=== PATIENT | female | born 1935 | race Caucasian/White ===

== ENCOUNTER → 2016-09-22 | Outpatient (CLI) | payer MEDICARE ==
--- NOTE | 2016-10-01 14:55 | WOMENS IMAGING REPORT ---
EXAM DESCRIPTION: BILAT SCREENING MAMMO W/CAD COMPLETED DATE/TIME: 09/22/2016 1:28 pm REASON FOR STUDY: ROUTINE SCREENING; Z12.31 Z12.31 ENCNTR SCREEN MAMMOGRAM FOR MALIGNANT NEOPLASM O F GEOFF COMPARISON: 08/13/2015 TECHNIQUE: Standard craniocaudal and mediolateral oblique views of each breast recorded using [employer] acquisition. LIMITATIONS: None. FINDINGS: No masses, calcifications or architectural distortion. No areas of suspicion. Read with the assistance of CAD. .[facility] - R2 Cenova Version 1.3 .[facility] - R2 Cenova Version 1.3 .[facility] - R2 Cenova Version 2.4 .[facility] - R2 Cenova Version 2.4 .[facility] - R2 Envelope Stuffer Version 9.2 IMPRESSION: NORMAL MAMMOGRAM. BIRADS 1. BREAST DENSITY: b. There are scattered areas of fibroglandular density. BIRAD: 1 NEGATIVE RECOMMENDATION: ROUTINE SCREENING COMMENT: The patient has been notified of the results by letter per SA requirements. Additional no tification policies are in place for contacting patient with suspicious or incomplete findings. Quality ID #[id number]: The [employer] recommends an annual screening mammogram for women aged 40 years or over. This facility utilizes a reminder system to ensure that all patients receive reminder letters, and/or direct phone calls for appointments. This includes reminders for routine scr eening mammograms, diagnostic mammograms, or other Breast Imaging Interventions when appropriate. Th is patient will be placed in the appropriate reminder system. The [employer] (ACR) has developed recommendations for screening MRI of the breast s in certain patient populations, to be used in conjunction with mammography. Breast MRI surveillanc e may be appropriate for women with more than 20% lifetime risk of developing breast cancer as deter mined by genetic testing, significant family history of the disease, or history of mantle radiation f or Hodgkins Disease. ACR Practice Guidelines 2008. TECHNICAL DOCUMENTATION: FINDING NUMBER: (1) ASSESSMENT: (1) JOB ID: [id number] [employer]- All Rights Reserved
== END ==
LOC: EDBD → MERGE 14:24 → WI 14:24
PROVIDERS: ATTEND Physician Assistant
DX: Z12.31 Encounter for screening mammogram for malignant neoplasm of breast (principal)
CPT/HCPCS: 77067; G0202

== ENCOUNTER 2016-09-27 17:20 | Emergency (ER) | payer MEDICARE ==
[2016-09-27 17:28] VITALS: BP 199/86
--- NOTE | 2016-09-27 18:24 | ER Document Report ---
ED Medical Screen (RME) - General Chief Complaint: Mouth Injury Stated Complaint: TONGUE SWELLING Time Seen by Provider: 09/27/16 18:20 Mode of Arrival: Ambulatory Information source: Patient Notes: This is a 80-year-old female that presents to the emergency room with swollen tongue after biting Hard on on her tongue earlier today. He has a history of hypertension. She is not on any blood thinners other than a baby aspirin a day. Denies any shortness of breath. TRAVEL OUTSIDE OF THE [place] IN LAST 30 DAYS: No - HPI Onset: Just prior to arrival Onset/Duration: Sudden Quality of pain: Dull Severity: Moderate Pain Level: 2 Associated Symptoms: denies: Chest pain, Fever, Shortness of breath, Sinus pain/ drainage Exacerbated by: Denies Relieved by: Denies Similar symptoms previously: No Recently seen / treated by doctor: No - Related Data Smoking: Non-smoker Frequency of alcohol use: None Drug Abuse: None Allergies/Adverse Reactions: prednisone [Prednisone] Allergy (Mild, Verified 12/13/12 11:03) rash hydromorphone HCl [From Dilaudid] Adverse Reaction (Severe, Verified 12/13/12 11 :03) "crazy" codeine [Codeine] Adverse Reaction (Intermediate, Verified 12/13/12 11:03) nausea vomit oxcarbazepine [From Trileptal] Adverse Reaction (Mild, Verified 12/13/12 11:03) HypoNa+ Past Medical History - General Information source: Patient - Social History Cigarette use (# per day): No Chew tobacco use (# tins/day): No Frequency of alcohol use: None Drug Abuse: None Lives with: Spouse/Significant other Family history: None - Past Medical History Cardiac Medical History: Reports: Hx Hypercholesterolemia, Hx Hypertension Pulmonary Medical History: Denies: Hx Tuberculosis Endocrine Medical History: Reports: Hx Hypothyroidism. Denies: Hx Diabetes Mellitus Type 1, Hx Diabetes Mellitus Type 2 Renal/ Medical History: Denies: Hx Peritoneal Dialysis GI Medical History: Reports: Hx Diverticulitis Psychiatric Medical History: Denies: Hx Depression Past Surgical History: Reports: Hx Breast Surgery - left breast biopsy, Hx Hysterectomy, Hx Orthopedic Surgery - back surgery - Immunizations Hx Diphtheria, Pertussis, Tetanus Vaccination: No Review of Systems - Review of Systems Constitutional: No symptoms reported EENT: See HPI Cardiovascular: No symptoms reported Respiratory: No symptoms reported Gastrointestinal: No symptoms reported Genitourinary: No symptoms reported Female Genitourinary: No symptoms reported Musculoskeletal: No symptoms reported Skin: No symptoms reported Hematologic/Lymphatic: No symptoms reported Neurological/Psychological: No symptoms reported Physical Exam - Vital signs Vitals: Temp Pulse Resp BP Pulse Ox 97.8 F 76 15 199/86 H 97 09/27/16 17:28 09/27/16 17:28 09/27/16 17:28 09/27/16 17:28 09/27/16 17:28 Notes: Physical exam: GENERAL: 80-year-old female, alert and oriented 3, no acute distress HEAD: Atraumatic, normocephalic. EYES: Pupils equal round and reactive to light, extraocular movements intact, sclera anicteric, conjunctiva are normal. ENT: Does have a contusion to the left mid tongue with some asymmetric swelling. There is no airway compromise. There is no stridor. The the mouth shows no swelling. NECK: Normal range of motion, supple without lymphadenopathy LUNGS: Breath sounds clear to auscultation bilaterally and equal. No wheezes rales or rhonchi. PSYCH: Normal mood, normal affect. SKIN: Warm, Dry, normal turgor, no rashes or lesions noted. Course - Vital Signs Vital signs: Temp Pulse Resp BP Pulse Ox 97.8 F 76 15 199/86 H 97 09/27/16 17:28 09/27/16 17:28 09/27/16 17:28 09/27/16 17:28 09/27/16 17:28 Doctor's Discharge - Discharge Clinical Impression: Tongue bite Condition: Stable Disposition: HOME, SELF-CARE Additional Instructions: Recommendations: Can use ice to the tongue for several minutes at a time over the next day. Benadryl will not necessarily help (but it will not make it worse either). Try to avoid any further bites to the area. Do not take your baby aspirin for the next several days ( can restart on ). Return to the emergency room for worsening swelling, difficulty breathing or any concerns or getting worse.
== END 2016-09-27 18:25 | disposition home or self-care (01) ==
LOC: ER 17:20
DX: S01.552A Open bite of oral cavity, initial encounter (principal); R22.0 Localized swelling, mass and lump, head; I10 Essential (primary) hypertension; W50.3XXA Accidental bite by another person, initial encounter
CPT/HCPCS: 99282

== ENCOUNTER → 2017-11-02 | Outpatient (CLI) | payer MEDICARE ==
--- NOTE | 2017-11-03 15:55 | WOMENS IMAGING REPORT ---
EXAM DESCRIPTION: 3D SCREENING MAMMO BILAT COMPLETED DATE/TIME: 11/02/2017 1:55 pm REASON FOR STUDY: BILATERAL SCREENING MAMMO 3D/Z12.31 Z12.31 ENCNTR SCREEN MAMMOGRAM FOR MALIGNANT NEOPLASM OF GEOFF COMPARISON: 2015, 2016 TECHNIQUE: Standard craniocaudal and mediolateral oblique views of each breast recorded using digita l acquisition and breast tomosynthesis. LIMITATIONS: None. FINDINGS: Findings present which are benign by mammographic criteria. No suspicious masses, calcifi cations or architectural distortion. Pertinent benign findings: Benign bilateral breast parenchymal calcifications Read with the assistance of CAD. .[facility] - R2 Cenova Version 1.3 .[facility] Imaging - R2 Cenova Version 1.3 .[facility] - R2 Cenova Version 2.4 .[facility] [place] Cenova Version 2.4 .[facility] - R2 Cloth Piecer Version 9.2 Benign mammographic findings may include one or more of the following: Smooth masses, popcorn/rim/co arse calcifications, asymmetries, post-procedure changes, and lesions with long-standing stability. IMPRESSION: BENIGN MAMMOGRAPHIC FINDINGS. BIRADS 2 BREAST DENSITY: c. The breasts are heterogeneously dense, which may obscure small masses. BIRAD: 2 BENIGN FINDING(S) RECOMMENDATION: RECOMMENDATION: ROUTINE SCREENING Please continue yearly bilateral screening tomosynthesis in November 2017 COMMENT: The patient has been notified of the results by letter per SA requirements. Additional no tification policies are in place for contacting patient with suspicious or incomplete findings. Quality ID #[id number]: The [employer] recommends an annual screening mammogram for women aged 40 years or over. This facility utilizes a reminder system to ensure that all patients receive reminder letters, and/or direct phone calls for appointments. This includes reminders for routine scr eening mammograms, diagnostic mammograms, or other Breast Imaging Interventions when appropriate. Th is patient will be placed in the appropriate reminder system. The [employer] (ACR) has developed recommendations for screening MRI of the breast s in certain patient populations, to be used in conjunction with mammography. Breast MRI surveillanc e may be appropriate for women with more than 20% lifetime risk of developing breast cancer as deter mined by genetic testing, significant family history of the disease, or history of mantle radiation f or Hodgkins Disease. ACR Practice Guidelines 2008. DBT Technology DBT is a type of tomographic mammography. With conventional mammography, overlapping breast tissue ma y make lesions difficult to detect, even with good compression. DBT uses an x-ray tube that rotates a round the breast, taking images at different angles. These images are then combined to create thin sl ices of the breast that the radiologist can view as a 3D reconstruction. The [employer] unit can perform full-field digital mammograms (2D imaging); or DBT (3D imaging); or both, in a combination mode that quickly performs both the mammogram and the tomosynthesis scan while the breast is still compressed. PQRS 6045F: Fluoroscopic imaging is not utilized for breast tomosynthesis. TECHNICAL DOCUMENTATION: FINDING NUMBER: (1) ASSESSMENT: (1) JOB ID: [id number] [employer]- All Rights Reserved Reading location - IP/workstation name: [email or web address]
== END ==
LOC: WI 13:22
PROVIDERS: ATTEND Physician Assistant
DX: Z12.31 Encounter for screening mammogram for malignant neoplasm of breast (principal)
CPT/HCPCS: 77063; 77067

== ENCOUNTER → 2018-03-17 | Outpatient (CLI) | payer MEDICARE ==
--- NOTE | 2018-03-17 14:04 | RADIOLOGY REPORT (SQ) ---
EXAM DESCRIPTION: CHEST PA/LATERAL COMPLETED DATE/TIME: 03/17/2018 12:29 pm REASON FOR STUDY: MILD INTERMITTENT REACTIVE AIRWAY DISEASE WITH ACUTE EXACERBATION COMPARISON: 12/13/2012 EXAM PARAMETERS: NUMBER OF VIEWS: two views TECHNIQUE: Digital Frontal and Lateral radiographic views of the chest acquired. RADIATION DOSE: NA LIMITATIONS: none FINDINGS: LUNGS AND PLEURA: The lungs are hyperexpanded. There is no infiltrate, effusion, or mass. Chronic interstitial changes are present. MEDIASTINUM AND HILAR STRUCTURES: No masses or contour abnormalities. HEART AND VASCULAR STRUCTURES: Heart normal size. No evidence for failure. BONES: No acute findings. HARDWARE: None in the chest. OTHER: No other significant finding. IMPRESSION: Chronic lung changes with no acute cardiopulmonary findings. TECHNICAL DOCUMENTATION: JOB ID: [id number] [employer]- All Rights Reserved Reading location - IP/workstation name: [email or web address]
== END ==
LOC: OD 10:34
PROVIDERS: ATTEND Physician Assistant
DX: J45.21 Mild intermittent asthma with (acute) exacerbation (principal)
CPT/HCPCS: 71046

== ENCOUNTER 2018-03-23 14:44 | Inpatient (IN) | payer MEDICARE ==
--- NOTE | 2018-03-23 14:51 | ER Document Report ---
ED General - General Stated Complaint: WEAKNESS Time Seen by Provider: 03/23/18 14:50 Notes: Patient is a 82-year-old female that presents to the emergency department for chief complaint of generalized weakness. Patient reports that over the past weeks has been feeling more and more weak, she thinks she has had a cough, possible pneumonia, she has been back and forth to the doctor's office over the course of the week, she went in yesterday, and then came back again today and she was advised to come to the emergency department. Patient is nonspecific but states she just feels generally weak, does not have the energy to get up and walk, and overall just has no appetite. Denies having any pain or any other complaints at this time. Past Medical History: COPD Past Surgical History: Hysterectomy Social History: Denies tobacco, alcohol or drug use. Family History: Reviewed and noncontributory for presenting illness Allergies: Reviewed, see documented allergy list. REVIEW OF SYSTEMS: Other than noted above, the 12 point review of systems was reviewed with the patient and were negative, all pertinent findings are included in the HPI. PHYSICAL EXAMINATION: Vital signs reviewed, nursing noted reviewed. GENERAL: Elderly female, no acute distress HEAD: Atraumatic, normocephalic. EYES: Eyes appear normal, extraocular movements intact, sclera anicteric, conjunctiva are normal. ENT: nares patent, oropharynx clear without exudates. Moist mucous membranes. NECK: Normal range of motion, supple without lymphadenopathy LUNGS: Breath sounds clear to auscultation bilaterally and equal. No wheezes rales or rhonchi. HEART: Regular rate and rhythm without murmurs ABDOMEN: Soft, nontender, normoactive bowel sounds. No rebound, guarding, or rigidity. No masses appreciated. EXTREMITIES: Nontender, good range of motion, trace bilateral generalized edema. NEUROLOGICAL: No focal neurological deficits. Moves all extremities spontaneously Motor and sensory grossly intact on exam. PSYCH: Normal mood, normal affect. SKIN: Warm, Dry, normal turgor, no rashes or lesions noted on exposed skin TRAVEL OUTSIDE OF THE [place] IN LAST 30 DAYS: No - Related Data Allergies/Adverse Reactions: prednisone [Prednisone] Allergy (Mild, Verified 03/23/18 20:57) rash hydromorphone HCl [From Dilaudid] Adverse Reaction (Severe, Verified 03/23/18 20:57) "crazy" codeine [Codeine] Adverse Reaction (Intermediate, Verified 03/23/18 20:57) nausea vomit oxcarbazepine [From Trileptal] Adverse Reaction (Mild, Verified 03/23/18 20:57) HypoNa+ Past Medical History - Social History Smoking Status: Former Smoker Family History: Reviewed & Not Pertinent - Past Medical History Cardiac Medical History: Reports: Hx Hypercholesterolemia, Hx Hypertension Pulmonary Medical History: Denies: Hx Tuberculosis Endocrine Medical History: Reports: Hx Hypothyroidism. Denies: Hx Diabetes Mellitus Type 1, Hx Diabetes Mellitus Type 2 Renal/ Medical History: Denies: Hx Peritoneal Dialysis GI Medical History: Reports: Hx Diverticulitis Psychiatric Medical History: Denies: Hx Depression Past Surgical History: Reports: Hx Breast Surgery - left breast biopsy, Hx Hysterectomy, Hx Orthopedic Surgery - back surgery - Immunizations Hx Diphtheria, Pertussis, Tetanus Vaccination: No Hx Pneumococcal Vaccination: 12/11/12 Physical Exam - Vital signs Vitals: Temp 97.4 F 03/23/18 15:14 Course - Re-evaluation Re-evalutation: Patient seen and examined vital signs reviewed. Laboratory data and imaging were ordered as appropriate for the patient's presenting symptoms and complaint, with consideration of any critical or life threatening conditions that may be associated with their obtained history and exam as noted above. Results were reviewed when available and demonstrated severe hyponatremia of 114, this is the worst the patient's been in the past, upon review of prior blood work she has had hyponatremia in the past, but has been some time, she is not currently on any diuretics The patient was re-evaluated and was stable, no focal neurological dysfunction, patient was feeling generally weak, did not have overt confusion Evaluation was most consistent with severe hyponatremia, requiring admission to the hospital, discussed the case with the hospitalist, serum osmolality, urine osmolality and sodium pending, will avoid IV fluids at this time, and hospitalist will determine appropriate care and treatment pending labs. Results were discussed with the patient at this point after careful con sideration I feel that that patient should be admitted to the hospital. This was discussed with the patient that it is in the best interest for their care to be admitted for further evaluation and management. Patient agreed with this plan of care. A call was placed to the admitted physician, Dr. Manuel who graciously accepted the patient onto their service. *Note is created using voice recognition software and may contain spelling, syntax or grammatical errors. Laboratory 03/23/18 03/23/18 03/23/18 15:05 15:05 15:05 WBC 7.8 RBC 3.61 L Hgb 11.6 L Hct 33.0 L MCV 91 MCH 32.1 MCHC 35.2 RDW 12.4 Plt Count 262 Seg Neutrophils % 85.7 H Lymphocytes % 7.0 L Monocytes % 7.0 Eosinophils % 0.2 Basophils % 0.1 Absolute Neutrophils 6.7 Absolute Lymphocytes 0.5 Absolute Monocytes 0.5 Absolute Eosinophils 0.0 Absolute Basophils 0.0 Sodium 114.5 L* Potassium 4.1 Chloride 77 L Carbon Dioxide 23 Anion Gap 15 BUN 16 Creatinine 0.66 Est GFR ( Amer) > 60 Est GFR (Non-Af Amer) > 60 Glucose 145 H Serum Osmolality Calcium 9.2 Total Bilirubin 0.3 Direct Bilirubin 0.1 Neonat Total Bilirubin Not Reportable Neonat Direct Bilirubin Not Reportable Neonat Indirect Bili Not Reportable AST 30 ALT 29 Alkaline Phosphatase 83 Creatine Kinase 165 H Troponin I < 0.012 Total Protein 6.9 Albumin 4.3 03/23/18 15:05 WBC RBC Hgb Hct MCV MCH MCHC RDW Plt Count Seg Neutrophils % Lymphocytes % Monocytes % Eosinophils % Basophils % Absolute Neutrophils Absolute Lymphocytes Absolute Monocytes Absolute Eosinophils Absolute Basophils Sodium Potassium Chloride Carbon Dioxide Anion Gap BUN Creatinine Est GFR ( Amer) Est GFR (Non-Af Amer) Glucose Serum Osmolality 242 L Calcium Total Bilirubin Direct Bilirubin Neonat Total Bilirubin Neonat Direct Bilirubin Neonat Indirect Bili AST ALT Alkaline Phosphatase Creatine Kinase Troponin I Total Protein Albumin Chest X-Ray 03/23/18 15:41 IMPRESSION: COPD. CHRONIC SCARRING. NO ACUTE RADIOGRAPHIC FINDING IN THE CHEST. - Vital Signs Vital signs: Temp Pulse Resp BP Pulse Ox 97.9 F 78 20 135/71 H 100 03/23/18 21:40 03/23/18 21:40 03/23/18 21:40 03/23/18 21:40 03/23/18 21:40 - Laboratory Result Diagrams: 03/23/18 15:05 03/23/18 15:05 Laboratory results interpreted by me: 03/23/18 03/23/18 03/23/18 15:05 15:05 15:05 RBC 3.61 L Hgb 11.6 L Hct 33.0 L Seg Neutrophils % 85.7 H Lymphocytes % 7.0 L Sodium 114.5 L* Chloride 77 L Glucose 145 H Serum Osmolality 242 L Creatine Kinase 165 H - EKG Interpretation by Me Additional EKG results interpreted by me: EKG demonstrates sinus rhythm with a ventricular rate of 75 bpm, normal axis, QTC elongated 479 ms, no evidence of acute ischemia on this EKG, there is baseline artifact. This is compared with prior EKG from 09/10/2015, without significant change. Critical Care Note - Critical Care Note Total time excluding time spent on procedures (mins): 36 Comments: Critical care time 36 minutes exclusive from separate billable procedures for a patient requiring complex medical decision making, and high potential for clinical deterioration. The patient with severe hyponatremia, requiring admission to the hospital, and high potential for neurological deterioration. Time spent obtaining history from patient or surrogate, discussions with consultants, development of treatment plan with patient or surrogate, evaluation of patient's response to treatment, examination of patient, ordering and performing treatments and interventions, ordering and review of laboratory studies, re-evaluation of patient's condition, ordering and review of radiographic studies and review of old charts Discharge - Discharge Clinical Impression: Severe hyponatremia, Generalized weakness Condition: Stable Disposition: ADMITTED INPATIENT Admitting Provider: Hospitalist - Dr. Manuel Unit Admitted: Telemetry
[2018-03-23 15:54] LABS: ABSOLUTE LYMPHOCYTES (AUTO) 0.5 10^3/uL (0.5-4.7); ABSOLUTE MONOCYTES (AUTO) 0.5 10^3/uL (0.1-1.4); ABSOLUTE NEUT (AUTO) 6.7 10^3/uL (1.7-8.2); BASOPHILS % (AUTO) 0.1 % (0-2); EOSINOPHILS % (AUTO) 0.2 % (0-6); HEMOGLOBIN 11.6 g/dL (12.0-15.5); MEAN CORPUSCULAR HEMOGLOBIN 32.1 pg (27.0-33.4); MEAN CORPUSCULAR HGB CONC 35.2 g/dL (32.0-36.0); MEAN CORPUSCULAR VOLUME 91 fl (80-97); PLATELET COUNT 262 10^3/uL (150-450); RED BLOOD COUNT 3.61 10^6/uL (3.72-5.28); RED CELL DISTRIBUTION WIDTH 12.4 % (11.5-14.0); SEGMENTED NEUTROPHILS % (AUTO) 85.7 % (42-78); TOTAL CELLS COUNTED % (AUTO) 100 %; WHITE BLOOD COUNT 7.8 10^3/uL (4.0-10.5)
--- NOTE | 2018-03-23 16:14 | RADIOLOGY REPORT (SQ) ---
EXAM DESCRIPTION: CHEST SINGLE VIEW COMPLETED DATE/TIME: 03/23/2018 3:51 pm REASON FOR STUDY: weakness COMPARISON: 03/17/2018. NUMBER OF VIEWS: One view. TECHNIQUE: Single frontal radiographic view of the chest acquired. LIMITATIONS: None. FINDINGS: LUNGS AND PLEURA: Chronic interstitial changes. No opacities, masses or pneumothorax. No pleural effusion. Attenuated blood vessels and flattened catalina-diaphragms. MEDIASTINUM AND HILAR STRUCTURES: No masses. Contour normal. HEART AND VASCULAR STRUCTURES: Heart normal in size. Normal vasculature. BONES: No acute findings. HARDWARE: None in the chest. OTHER: No other significant finding. IMPRESSION: COPD. CHRONIC SCARRING. NO ACUTE RADIOGRAPHIC FINDING IN THE CHEST. TECHNICAL DOCUMENTATION: JOB ID: [id number] [employer]- All Rights Reserved Reading location - IP/workstation name: [email or web address]
[2018-03-23 16:30] LABS: ALANINE AMINOTRANSFERASE 29 U/L (9-52); ALBUMIN 4.3 g/dL (3.5-5.0); ALKALINE PHOSPHATASE 83 U/L (38-126); ASPARTATE AMINO TRANSFERASE 30 U/L (14-36); BILIRUBIN,DIRECT 0.1 mg/dL (0.0-0.4); BILIRUBIN,TOTAL 0.3 mg/dL (0.2-1.3); BLOOD UREA NITROGEN 16 mg/dL (7-20); CALCIUM 9.2 mg/dL (8.4-10.2); CARBON DIOXIDE 23 mmol/L (22-30); CHLORIDE 77 mmol/L (98-107); CREATINE KINASE 165 U/L (30-135); GLUCOSE 145 mg/dL (75-110); POTASSIUM 4.1 mmol/L (3.6-5.0); TOTAL PROTEIN 6.9 g/dL (6.3-8.2)
[2018-03-23 16:32] LABS: ANION GAP 15 (5-19)
[2018-03-23 16:50] LABS: SODIUM 114.5 mmol/L (137-145)
--- NOTE | 2018-03-23 17:53 | EKG REPORT ---
SEVERITY:- NORMAL ECG - SINUS RHYTHM : Confirmed by: Masha Ritter 23-Mar-2018 17:53:07
[2018-03-23] MEDS ORDERED: ONDANSETRON HCL INJ/PF 4 MG/2 ML SDV IV PRN (17:59)
--- NOTE | 2018-03-23 17:59 | PDOC H&P ---
History of Present Illness Admission Date/PCP: ELLIE WOLF PA-C History of Present Illness: ELI MEJIA is a 82 year old female patient presents with chief complaint of generalized weakness and shortness of breath. Patient has visited her PCP office several times to no avail. Patient has associated nausea but no vomiting, diarrhea, abdominal pain or any urinary complaints. Her blood work shows marked hyponatremia with sodium of 114. The rest of her blood work is un remarkable. Patient has underlying history of hypertension, hypothyroidism and hyperlipidemia. Patient denies any headache, dizziness or blurry of vision or any seizure activity. Past Medical History Cardiac Medical History: Reports: Hyperlipidema, Hypertension Pulmonary Medical History: Denies: Tuberculosis Endocrine Medical History: Reports: Hypothyroidism Denies: Diabetes Mellitus Type 1, Diabetes Mellitus Type 2 GI Medical History: Reports: Diverticulitis Psychiatric Medical History: Denies: Depression Past Surgical History Past Surgical History: Reports: Hysterectomy, Orthopedic Surgery - back surgery Social History Smoking Status: Unknown if Ever Smoked Frequency of Alcohol Use: None Hx Recreational Drug Use: No Drugs: None Hx Prescription Drug Abuse: No - Advance Directive Resuscitation Status: Full Code Family History Family History: Reviewed & Not Pertinent Parental Family History Reviewed: Yes Children Family History Reviewed: Yes Sibling(s) Family History Reviewed.: Yes Medication/Allergy Home Medications: Amitriptyline HCl [Elavil 50 mg Tablet] 50 mg PO QHS 12/10/12 Ascorbic Acid [Vitamin C] 500 mg PO BID 12/10/12 Aspirin [Aspirin 81 mg Chewable Tablet] 81 mg PO DAILY 12/10/12 Benazepril HCl [Lotensin 20 mg Tablet] 40 mg PO DAILY 12/10/12 Calcium Carbonate [Caltrate 600] 1 tab PO DAILY 12/10/12 Docusate Sodium [Stool Softener] 100 mg PO DAILY 12/10/12 Estrogens,Conjugated [Premarin 1.25 mg Tablet] 1.25 mg PO DAILY 12/10/12 Levothyroxine Sodium [Synthroid 0.1 mg Tablet] 150 mcg PO DAILY 12/10/12 Mv-Min/Iron/Folic/Calcium/Vitk [One-A-Day Women's Tablet] 1 each PO DAILY 12/10/12 Pravastatin Sodium [Pravachol] 20 mg PO DAILY 12/10/12 Tolterodine Tartrate [Detrol LA] 4 mg PO DAILY 12/10/12 Acetaminophen [Tylenol 325 mg Tablet] 650 mg PO Q6HP PRN #30 tablet 09/12/15 Cephalexin Monohydrate [Keflex 500 mg Capsule] 500 mg PO QID #20 capsule 09/12/15 Allergies/Adverse Reactions: prednisone [Prednisone] Allergy (Mild, Verified 12/13/12 11:03) rash hydromorphone HCl [From Dilaudid] Adverse Reaction (Severe, Verified 12/13/12 11:03) "crazy" codeine [Codeine] Adverse Reaction (Intermediate, Verified 12/13/12 11:03) nausea vomit oxcarbazepine [From Trileptal] Adverse Reaction (Mild, Verified 12/13/12 11:03) HypoNa+ Review of Systems Constitutional: PRESENT: as per HPI Eyes: PRESENT: as per HPI Cardiovascular: PRESENT: as per HPI Respiratory: PRESENT: as per HPI Gastrointestinal: PRESENT: as per HPI Neurological: PRESENT: as per HPI Physical Exam Vital Signs: Temp Pulse Resp BP Pulse Ox 97.4 F 15 141/77 H 100 03/23/18 15:14 03/23/18 17:01 03/23/18 17:01 03/23/18 17:01 Intake & Output 03/22/18 03/23/18 03/24/18 06:59 06:59 06:59 Weight 72.575 kg General appearance: PRESENT: no acute distress Head exam: PRESENT: atraumatic, normocephalic Eye exam: PRESENT: conjunctiva pink Mouth exam: PRESENT: dry mucosa Neck exam: ABSENT: carotid bruit, JVD, lymphadenopathy, thyromegaly Respiratory exam: PRESENT: clear to auscultation eduard. ABSENT: rales, rhonchi, wheezes Cardiovascular exam: PRESENT: systolic murmur GI/Abdominal exam: PRESENT: normal bowel sounds, soft. ABSENT: distended, guarding, mass, organolmegaly, rebound, tenderness Neurological exam: PRESENT: alert, awake, oriented to time, reflexes normal Psychiatric exam: PRESENT: normal mood Results Laboratory Results: 03/23/18 15:05 03/23/18 15:05 03/23/18 03/23/18 03/23/18 15:05 15:05 15:05 WBC 7.8 RBC 3.61 L Hgb 11.6 L Hct 33.0 L MCV 91 MCH 32.1 MCHC 35.2 RDW 12.4 Plt Count 262 Seg Neutrophils % 85.7 H Lymphocytes % 7.0 L Monocytes % 7.0 Eosinophils % 0.2 Basophils % 0.1 Absolute Neutrophils 6.7 Absolute Lymphocytes 0.5 Absolute Monocytes 0.5 Absolute Eosinophils 0.0 Absolute Basophils 0.0 Sodium 114.5 L* Potassium 4.1 Chloride 77 L Carbon Dioxide 23 Anion Gap 15 BUN 16 Creatinine 0.66 Est GFR ( Amer) > 60 Est GFR (Non-Af Amer) > 60 Glucose 145 H Serum Osmolality 242 L Calcium 9.2 Total Bilirubin 0.3 AST 30 ALT 29 Alkaline Phosphatase 83 Total Protein 6.9 Albumin 4.3 03/23/18 03/23/18 15:05 15:05 Creatine Kinase 165 H Troponin I < 0.012 Impressions: Chest X-Ray 03/23/18 15:41 IMPRESSION: COPD. CHRONIC SCARRING. NO ACUTE RADIOGRAPHIC FINDING IN THE CHEST. Assessment & Plan - Diagnosis (1) Severe hyponatremia Is this a current diagnosis for this admission?: Yes Plan: Patient will be admitted to [facility]. I will cautiously hydrate her and repeat her BMP in a.m. (2) Hypothyroidism (acquired) Is this a current diagnosis for this admission?: Yes Plan: We will continue her Synthroid and check her TSH status. (3) Hypertension Qualifiers: Hypertension type: essential hypertension Qualified Code(s): I10 - Essential (primary) hypertension Is this a current diagnosis for this admission?: Yes Plan: Continue home medication (4) Hyperlipidemia Qualifiers: Hyperlipidemia type: unspecified Qualified Code(s): E78.5 - Hyperlipidemia, unspecified Is this a current diagnosis for this admission?: Yes Plan: Continue home medication - Inpatient Certification Medical Necessity: Need Close Monitoring Due to Risk of Patient Decompensation, Need For IV Fluids
[2018-03-23] MEDS: NORMAL SALINE 1000 ML 1,000 ML IV PRN (18:37)
[2018-03-23] MEDS ORDERED: SODIUM CHLORIDE 1 GM TABLET PO ONE (19:00)
[2018-03-23] MEDS: ENOXAPARIN SODIUM INJ 40 MG/0.4 ML DISP.SYRIN SUBCUT SCH (20:59)
[2018-03-23] MEDS: FAMOTIDINE 20 MG TABLET PO SCH (22:19)
[2018-03-23] MEDS: ACETAMINOPHEN 325 MG TABLET PO PRN (23:06)
[2018-03-23 23:18] LABS: APPEARANCE,URINE CLEAR; BILIRUBIN,URINE NEGATIVE (NEGATIVE); COLOR,URINE YELLOW; GLUCOSE, URINE NEGATIVE (NEGATIVE); KETONES,URINE TRACE mg/dL (NEGATIVE); LEUKOCYTE ESTERASE,URINE NEGATIVE (NEGATIVE); NITRITE,URINE NEGATIVE (NEGATIVE); PROTEIN,URINE NEGATIVE (NEGATIVE); URINE SPECIFIC GRAVITY 1.012; UROBILINOGEN,URINE NEGATIVE mg/dL (<2.0)
[2018-03-23 23:32] LABS: OSMOLALITY,URINE 373 mOsm/kg (300-900)
[2018-03-23 23:34] LABS: URINE SODIUM 46 mmol/L (30-90)
[2018-03-24] MEDS: NORMAL SALINE 1000 ML 1,000 ML IV PRN ×2 (05:33→17:04)
[2018-03-24 06:02] LABS: HEMATOCRIT 31.1 % (36.0-47.0); HEMOGLOBIN 11.2 g/dL (12.0-15.5); MEAN CORPUSCULAR HEMOGLOBIN 32.5 pg (27.0-33.4); MEAN CORPUSCULAR HGB CONC 35.9 g/dL (32.0-36.0); MEAN CORPUSCULAR VOLUME 91 fl (80-97); PLATELET COUNT 212 10^3/uL (150-450); RED BLOOD COUNT 3.44 10^6/uL (3.72-5.28); RED CELL DISTRIBUTION WIDTH 12.1 % (11.5-14.0); WHITE BLOOD COUNT 4.7 10^3/uL (4.0-10.5)
[2018-03-24 06:30] LABS: ANION GAP 10 (5-19); BLOOD UREA NITROGEN 11 mg/dL (7-20); CALCIUM 8.7 mg/dL (8.4-10.2); CARBON DIOXIDE 25 mmol/L (22-30); CHLORIDE 83 mmol/L (98-107); GLUCOSE 96 mg/dL (75-110); POTASSIUM 3.5 mmol/L (3.6-5.0)
[2018-03-24 06:36] LABS: SODIUM 117.6 mmol/L (137-145)
[2018-03-24] MEDS: ACETAMINOPHEN 325 MG TABLET PO PRN ×2 (07:27→17:04)
[2018-03-24] MEDS ORDERED: SODIUM CHLORIDE 1 GM TABLET PO SCH (10:00)
[2018-03-24] MEDS ORDERED: ONDANSETRON HCL INJ/PF 4 MG/2 ML SDV IV PRN (10:09)
[2018-03-24] MEDS ORDERED: ONDANSETRON HCL INJ/PF 4 MG/2 ML SDV ONE (10:10)
[2018-03-24] MEDS: ENOXAPARIN SODIUM INJ 40 MG/0.4 ML DISP.SYRIN SUBCUT SCH (10:17)
[2018-03-24] MEDS: FAMOTIDINE 20 MG TABLET PO SCH ×2 (10:18→22:45)
[2018-03-24] MEDS: SODIUM CHLORIDE 1 GM TABLET PO SCH ×2 (10:18→17:04)
[2018-03-24] MEDS ORDERED: ONDANSETRON HCL INJ/PF 4 MG/2 ML SDV IV ONE (10:30)
--- NOTE | 2018-03-24 14:36 | PDOC PROGRESS REPORT ---
Subjective Progress Note for:: 03/24/18 Subjective:: This is a 21 years old female patient admitted with chief complaint of generalized body weakness nausea. Her blood work shows markedly reduced sodium of 114. Patient has been on normal saline at rate of 100 mL/h and she is also on sodium chloride tablets. Her morning labs shows her sodium level is trending up. Reason For Visit: SEVERE HYPONATREMIA Physical Exam Vital Signs: Temp Pulse Resp BP Pulse Ox 98.2 F 80 16 154/79 H 99 03/24/18 12:19 03/24/18 12:19 03/24/18 12:19 03/24/18 12:19 03/24/18 12:19 Intake & Output 03/23/18 03/24/18 03/25/18 06:59 06:59 06:59 Intake Total 1000 Output Total 750 Balance 250 Weight 72.8 kg General appearance: PRESENT: no acute distress Head exam: PRESENT: atraumatic Eye exam: PRESENT: conjunctiva pink Mouth exam: PRESENT: moist Neck exam: ABSENT: carotid bruit, JVD, lymphadenopathy, thyromegaly Respiratory exam: PRESENT: clear to auscultation eduard. ABSENT: rales, rhonchi, wheezes Cardiovascular exam: PRESENT: RRR. ABSENT: diastolic murmur, rubs, systolic murmur GI/Abdominal exam: PRESENT: normal bowel sounds, soft. ABSENT: distended, guarding, mass, organolmegaly, rebound, tenderness Neurological exam: PRESENT: alert, awake Results Laboratory Results: 03/24/18 05:42 03/24/18 05:42 03/23/18 03/23/18 03/23/18 15:05 15:05 15:05 WBC 7.8 RBC 3.61 L Hgb 11.6 L Hct 33.0 L MCV 91 MCH 32.1 MCHC 35.2 RDW 12.4 Plt Count 262 Seg Neutrophils % 85.7 H Lymphocytes % 7.0 L Monocytes % 7.0 Eosinophils % 0.2 Basophils % 0.1 Absolute Neutrophils 6.7 Absolute Lymphocytes 0.5 Absolute Monocytes 0.5 Absolute Eosinophils 0.0 Absolute Basophils 0.0 Sodium 114.5 L* Potassium 4.1 Chloride 77 L Carbon Dioxide 23 Anion Gap 15 BUN 16 Creatinine 0.66 Est GFR ( Amer) > 60 Est GFR (Non-Af Amer) > 60 Glucose 145 H Serum Osmolality 242 L Calcium 9.2 Magnesium Total Bilirubin 0.3 AST 30 ALT 29 Alkaline Phosphatase 83 Total Protein 6.9 Albumin 4.3 TSH Urine Color Urine Appearance Urine pH Ur Specific [place] Urine Protein Urine Glucose (UA) Urine Ketones Urine Blood Urine Nitrite Ur Leukocyte Esterase Urine WBC (Auto) Urine RBC (Auto) Urine Osmolality 03/23/18 03/23/18 03/24/18 23:02 23:02 05:42 WBC 4.7 RBC 3.44 L Hgb 11.2 L Hct 31.1 L MCV 91 MCH 32.5 MCHC 35.9 RDW 12.1 Plt Count 212 Seg Neutrophils % Lymphocytes % Monocytes % Eosinophils % Basophils % Absolute Neutrophils Absolute Lymphocytes Absolute Monocytes Absolute Eosinophils Absolute Basophils Sodium Potassium Chloride Carbon Dioxide Anion Gap BUN Creatinine Est GFR ( Amer) Est GFR (Non-Af Amer) Glucose Serum Osmolality Calcium Magnesium Total Bilirubin AST ALT Alkaline Phosphatase Total Protein Albumin TSH Urine Color YELLOW Urine Appearance CLEAR Urine pH 7.0 Ur Specific [place] 1.012 Urine Protein NEGATIVE Urine Glucose (UA) NEGATIVE Urine Ketones TRACE H Urine Blood NEGATIVE Urine Nitrite NEGATIVE Ur Leukocyte Esterase NEGATIVE Urine WBC (Auto) 0 Urine RBC (Auto) 0 Urine Osmolality 373 03/24/18 03/24/18 05:42 05:42 WBC RBC Hgb Hct MCV MCH MCHC RDW Plt Count Seg Neutrophils % Lymphocytes % Monocytes % Eosinophils % Basophils % Absolute Neutrophils Absolute Lymphocytes Absolute Monocytes Absolute Eosinophils Absolute Basophils Sodium 117.6 L* Potassium 3.5 L Chloride 83 L Carbon Dioxide 25 Anion Gap 10 BUN 11 Creatinine 0.60 Est GFR ( Amer) > 60 Est GFR (Non-Af Amer) > 60 Glucose 96 Serum Osmolality Calcium 8.7 Magnesium 1.5 L Total Bilirubin AST ALT Alkaline Phosphatase Total Protein Albumin TSH 3.07 Urine Color Urine Appearance Urine pH Ur Specific [place] Urine Protein Urine Glucose (UA) Urine Ketones Urine Blood Urine Nitrite Ur Leukocyte Esterase Urine WBC (Auto) Urine RBC (Auto) Urine Osmolality 03/23/18 03/23/18 03/23/18 15:05 15:05 20:55 Creatine Kinase 165 H Troponin I < 0.012 < 0.012 Impressions: Chest X-Ray 03/23/18 15:41 IMPRESSION: COPD. CHRONIC SCARRING. NO ACUTE RADIOGRAPHIC FINDING IN THE CHEST. Assessment & Plan - Diagnosis (1) Severe hyponatremia Is this a current diagnosis for this admission?: Yes Plan: Improving (2) Hypothyroidism (acquired) Is this a current diagnosis for this admission?: Yes Plan: We will continue her Synthroid and check her TSH status. (3) Hypertension Qualifiers: Hypertension type: essential hypertension Qualified Code(s): I10 - Essential (primary) hypertension Is this a current diagnosis for this admission?: Yes Plan: Continue home medication (4) Hyperlipidemia Qualifiers: Hyperlipidemia type: unspecified Qualified Code(s): E78.5 - Hyperlipidemia, unspecified Is this a current diagnosis for this admission?: Yes Plan: Continue home medication
[2018-03-25] MEDS: NORMAL SALINE 1000 ML 1,000 ML IV PRN (03:05)
[2018-03-25 05:16] LABS: ANION GAP 8 (5-19); BLOOD UREA NITROGEN 13 mg/dL (7-20); CALCIUM 8.7 mg/dL (8.4-10.2); CARBON DIOXIDE 25 mmol/L (22-30); CHLORIDE 98 mmol/L (98-107); GLUCOSE 81 mg/dL (75-110); POTASSIUM 3.8 mmol/L (3.6-5.0); SODIUM 130.8 mmol/L (137-145)
[2018-03-25] MEDS: FAMOTIDINE 20 MG TABLET PO SCH ×2 (09:10→22:16)
[2018-03-25] MEDS: SODIUM CHLORIDE 1 GM TABLET PO SCH (09:11)
[2018-03-25] MEDS: ENOXAPARIN SODIUM INJ 40 MG/0.4 ML DISP.SYRIN SUBCUT SCH (09:11)
[2018-03-25 09:36] LABS: ALANINE AMINOTRANSFERASE 29 U/L (9-52); ALBUMIN 3.4 g/dL (3.5-5.0); ALKALINE PHOSPHATASE 67 U/L (38-126); ANION GAP 8 (5-19); ASPARTATE AMINO TRANSFERASE 28 U/L (14-36); BILIRUBIN,DIRECT 0.2 mg/dL (0.0-0.4); BILIRUBIN,TOTAL 0.4 mg/dL (0.2-1.3); BLOOD UREA NITROGEN 12 mg/dL (7-20); CALCIUM 8.7 mg/dL (8.4-10.2); CARBON DIOXIDE 24 mmol/L (22-30); CHLORIDE 98 mmol/L (98-107); GLUCOSE 101 mg/dL (75-110); POTASSIUM 3.6 mmol/L (3.6-5.0); SODIUM 130.2 mmol/L (137-145); TOTAL PROTEIN 5.7 g/dL (6.3-8.2)
[2018-03-25 15:10] LABS: ANION GAP 9 (5-19); BLOOD UREA NITROGEN 12 mg/dL (7-20); CALCIUM 8.6 mg/dL (8.4-10.2); CARBON DIOXIDE 24 mmol/L (22-30); CHLORIDE 98 mmol/L (98-107); GLUCOSE 99 mg/dL (75-110)
--- NOTE | 2018-03-25 15:34 | PDOC PROGRESS REPORT ---
Subjective Progress Note for:: 03/25/18 Subjective:: spoke with patient at bedside - she's alert and awake- states she feels a little weak but otherwise has no complaints. denies chest pain, SOB, abdominal pain, n/v or dizziness Reason For Visit: SEVERE HYPONATREMIA Physical Exam Vital Signs: Temp Pulse Resp BP Pulse Ox 97.7 F 80 16 172/86 H 100 03/25/18 11:51 03/25/18 14:00 03/25/18 11:51 03/25/18 11:51 03/25/18 11:51 Intake & Output 03/24/18 03/25/18 03/26/18 06:59 06:59 06:59 Intake Total 1000 2888 747 Output Total 750 2250 800 Balance 250 638 -53 Weight 160 lb 7.944 oz 162 lb 7.691 oz General appearance: PRESENT: no acute distress Head exam: PRESENT: atraumatic, normocephalic Eye exam: PRESENT: EOMI, PERRLA. ABSENT: conjunctival injection, scleral icterus Ear exam: PRESENT: normal external ear exam Mouth exam: PRESENT: tongue midline Neck exam: ABSENT: tracheal deviation Respiratory exam: PRESENT: clear to auscultation eduard, symmetrical Cardiovascular exam: PRESENT: +S1, +S2 Pulses: PRESENT: +2 pedal pulses bilateral GI/Abdominal exam: PRESENT: normal bowel sounds, soft. ABSENT: tenderness Extremities exam: ABSENT: pedal edema Neurological exam: PRESENT: alert, awake, oriented to person, oriented to place, oriented to time, oriented to situation, CN II-XII grossly intact Skin exam: PRESENT: dry, warm Results Laboratory Results: 03/24/18 05:42 03/25/18 03/25/18 04:24 08:36 Sodium 130.8 L 130.2 L Potassium 3.8 3.6 Chloride 98 98 Carbon Dioxide 25 24 Anion Gap 8 8 BUN 13 12 Creatinine 0.53 0.54 Est GFR ( Amer) > 60 > 60 Est GFR (Non-Af Amer) > 60 > 60 Glucose 81 101 Calcium 8.7 8.7 Total Bilirubin 0.4 AST 28 ALT 29 Alkaline Phosphatase 67 Total Protein 5.7 L Albumin 3.4 L 03/23/18 03/23/18 03/23/18 15:05 15:05 20:55 Creatine Kinase 165 H Troponin I < 0.012 < 0.012 Impressions: Chest X-Ray 03/23/18 15:41 IMPRESSION: COPD. CHRONIC SCARRING. NO ACUTE RADIOGRAPHIC FINDING IN THE CHEST. Assessment & Plan - Diagnosis (1) Severe hyponatremia Is this a current diagnosis for this admission?: Yes (2) Generalized weakness Is this a current diagnosis for this admission?: Yes (3) Hyperlipidemia Qualifiers: Hyperlipidemia type: unspecified Qualified Code(s): E78.5 - Hyperlipidemia, unspecified Is this a current diagnosis for this admission?: Yes (4) Hypertension Qualifiers: Hypertension type: essential hypertension Qualified Code(s): I10 - Essential (primary) hypertension Is this a current diagnosis for this admission?: Yes - Plan Summary Plan Summary: Hyponatremia- assumed care this morning. noted her Na to be 130 this morning. yesterday morning her Na was 117. she was on IV NS and Salt tabs. i have stopped both these. her Na is overcorrected at thsi time- goal should be no mor e than 8-10meq/24hr. fortunately her mentation is intact. she's alert and oriented. ordered BMP Q4h. if she shows any symptoms to AMS- will need to transfer to ICU immediately. Will consult nephrology for assistance with this pleasant patient. HTN- will restart norvasc which was not started on admission. will add hydralazine PRN HLD- will restart statin OAB- will restart oxybutynin
[2018-03-25] MEDS: OXYBUTYNIN CHLORIDE 5 MG TABLET PO SCH (18:01)
[2018-03-25] MEDS: ATORVASTATIN CALCIUM 10 MG TABLET PO SCH (22:16)
[2018-03-25] MEDS: ACETAMINOPHEN 325 MG TABLET PO PRN (22:16)
--- NOTE | 2018-03-25 22:42 | PDOC CONSULTATION ---
Consultation Consult Date: 03/25/18 Attending physician:: WALTER GUADARRAMA Consult reason:: I was asked to see this patient for hyponatremia. History of Present Illness Admission Date/PCP: 03/23/18 18:08 LASHON YATES PA-C History of Present Illness: ELI MEJIA is a 82 year old female with history of hypothyroidism, hypertension and hyperlipidemia who was sent to the emergency room because of we akness. About 2 days ago while at home the patient slipped down on the floor. Patient then went to see her primary care provider, Lashon yates and was subsequently sent to the emergency room for generalized weakness. Patient said that she usually is unsteady on her gait and has baseline shaking for years. She denies any nausea, vomiting, diarrhea. She denies being confused or disoriented. She denies any new medications. She said she is eating good and has a good appendectomy type. She denies any chest pains no shortness of breath no weight loss. She denies any problems with her sodium before. However she reports that she is not using much salt at all at home in her food. She drinks a lot of fluids including water, Powerade and coffee. He said he probably drinks about 2 L of fluids every day. When she came in she has a very low sodium of 114.5. She was then given IV fluid boluses of 0.9 normal saline and continued at 100 mL an hour in addition she is being given 1 g of sodium chloride tablets for the last 36 hours at least. Her sodium level today has gone up to 130.8 so discontinued her normal saline and salt tablets. When I saw the patient today she seems to be eating good and has fair appetite. Further workup showed a serum osmolality of 242 as expected, urine osmolality of 373, magnesium borderline low at 1.5, normal TSH and normal chest x-ray. Patient denies any other complaints otherwise. Past Medical History Cardiac Medical History: Reports: Hyperlipidemia, Hypertension-primary Endocrine Medical History: Reports: Hypothyroidism GI Medical History: Reports: Diverticulitis Past Surgical History Past Surgical History: Reports: Hysterectomy, Orthopedic Surgery - back surgery, Other - Left breast biopsy which was benign Social History Information Source: Patient Lives with: Spouse/Significant other Smoking Status: Former Smoker Frequency of Alcohol Use: None Hx Recreational Drug Use: No Drugs: None Hx Prescription Drug Abuse: No - Advance Directive Resuscitation Status: Full Code Family History Family History: DM - Mother, Malignancy - Brain cancer- brother, sister has stomach cancer, father has lung cancer, another sister has liver cancer, 4 sisters and 2 brothers of cancer Parental Family History Reviewed: Yes Children Family History Reviewed: Yes Sibling(s) Family History Reviewed.: Yes Medication/Allergy Home Medications: Albuterol Sulfate [Ventolin 0.083% Neb 2.5 mg/3 mL Ampul] 3 ml NEB Q8 03/23/18 Amitriptyline HCl [Elavil 50 mg Tablet] 50 mg PO QHS 03/23/18 Amlodipine Besylate [Norvasc 5 mg Tablet] 5 mg PO DAILY 03/23/18 Benazepril HCl [Lotensin] 40 mg PO DAILY 03/23/18 Fluticasone Propionate [Flovent Hfa 110 Mcg Inhalation Aerosol 12 gm] 1 puff IH Q12 03/23/18 Gabapentin [Neurontin 100 mg Capsule] 100 mg PO Q8 03/23/18 Oxybutynin Chloride [Ditropan 5 mg Tablet] 5 mg PO BID 03/23/18 Pravastatin Sodium [Pravachol] 20 mg PO DAILY 03/23/18 Allergies/Adverse Reactions: prednisone [Prednisone] Allergy (Mild, Verified 03/23/18 20:57) rash hydromorphone HCl [From Dilaudid] Adverse Reaction (Severe, Verified 03/23/18 20:57) "crazy" codeine [Codeine] Adverse Reaction (Intermediate, Verified 03/23/18 20:57) nausea vomit oxcarbazepine [From Trileptal] Adverse Reaction (Mild, Verified 03/23/18 20:57) HypoNa+ Review of Systems All systems: reviewed and no additional remarkable complaints except as stated Review of Systems: Constitutional: ABSENT: chills, fatigue, fever(s), headache(s), weight gain, weight loss admits weakness Eyes: ABSENT: visual disturbances Ears: ABSENT: hearing changes Cardiovascular: ABSENT: chest pain, dyspnea on exertion, edema, orthropnea, palpitations Respiratory: ABSENT: cough, dyspnea, hemoptysis Gastrointestinal: ABSENT: abdominal pain, constipation, diarrhea, hematemesis, hematochezia, nausea, vomiting Genitourinary: ABSENT: dysuria, hematuria Musculoskeletal: ABSENT: joint swelling Integumentary: ABSENT: rash, wounds Neurological: ABSENT: abnormal gait, abnormal speech, confusion, dizziness, focal weakness, numbness, syncope Psychiatric: ABSENT: anxiety, depression Endocrine: ABSENT: cold intolerance, heat intolerance, polydipsia, polyuria Hematologic/Lymphatic: ABSENT: easy bleeding, easy bruising, lymphadenopathy Physical Exam Vital Signs: Temp Pulse Resp BP Pulse Ox 98.0 F 76 16 145/69 H 100 03/25/18 19:45 03/25/18 19:45 03/25/18 19:45 03/25/18 19:45 03/25/18 19:45 Intake & Output 03/24/18 03/25/18 03/26/18 06:59 06:59 06:59 Intake Total 1000 2888 984 Output Total 750 2250 2050 Balance 250 638 -1066 Weight 72.8 kg 73.7 kg Exam: General appearance: No acute distress, cooperative, well-developed, well- nourished Head exam: PRESENT: atraumatic, normocephalic Eye exam: PRESENT: Conjunctiva slightly pale, EOMI, PERRLA. ABSENT: conjunctival injection, scleral icterus Mouth exam: PRESENT: moist, neck supple, tongue midline Neck exam: PRESENT: full ROM. ABSENT: carotid bruit, JVD, lymphadenopathy, thyromegaly Respiratory exam: PRESENT: clear to auscultation bilaterally. ABSENT: rales, rhonchi, stridor, wheezes Cardiovascular exam: PRESENT: RRR, +S1, +S2. ABSENT: systolic murmur Pulses: PRESENT: normal radial pulses, normal dorsalis pedis pulses GI/Abdominal exam: PRESENT: normal bowel sounds, soft. ABSENT: guarding, mass, tenderness Rectal exam: Deferred Extremities exam: PRESENT: full ROM. ABSENT: calf tenderness, pedal edema Musculoskeletal: PRESENT: full ROM. ABSENT: deformity Neurological exam: PRESENT: alert, Awake, Oriented to person, Oriented to place, Oriented to time, reflexes normal, CN II-XII grossly intact. ABSENT: motor sensory deficit Psychiatric exam: PRESENT: appropriate affect, normal mood. ABSENT: homicidal ideation, suicidal ideation Skin exam: PRESENT: intact, dry, warm. ABSENT: rash Results Laboratory Results: 03/24/18 05:42 03/25/18 14:10 03/25/18 03/25/18 03/25/18 04:24 08:36 14:10 Sodium 130.8 L 130.2 L 131.0 L Potassium 3.8 3.6 4.0 Chloride 98 98 98 Carbon Dioxide 25 24 24 Anion Gap 8 8 9 BUN 13 12 12 Creatinine 0.53 0.54 0.52 Est GFR ( Amer) > 60 > 60 > 60 Est GFR (Non-Af Amer) > 60 > 60 > 60 Glucose 81 101 99 Calcium 8.7 8.7 8.6 Total Bilirubin 0.4 AST 28 ALT 29 Alkaline Phosphatase 67 Total Protein 5.7 L Albumin 3.4 L 03/23/18 03/23/18 03/23/18 15:05 15:05 20:55 Creatine Kinase 165 H Troponin I < 0.012 < 0.012 Impressions: Chest X-Ray 03/23/18 15:41 IMPRESSION: COPD. CHRONIC SCARRING. NO ACUTE RADIOGRAPHIC FINDING IN THE CHEST. Assessment & Plan - Diagnosis (1) Severe hyponatremia Is this a current diagnosis for this admission?: Yes Plan: Patient appears to be euvolemic now. 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 History of hypothyroidism as a risk factor. Quite concerning is long list of family history of malignancy. So far workup does not reveal any sign of malignancy with normal chest x-ray. However as an outpatient I think patient should have at least a mammogram and need close monitoring just in case she presents with other symptoms. Encourage patient to eat and allow her to put a little bit more salt in her food. Advised not more than 2 L of oral fluids. Agree with holding the sodium chloride tablets and IV fluids for now. Continue to monitor for her labs. (2) Generalized weakness Is this a current diagnosis for this admission?: Yes Plan: Due to severe hyponatremia. (3) Hypothyroidism (acquired) Is this a current diagnosis for this admission?: Yes (4) Anemia Is this a current diagnosis for this admission?: Yes (5) Hypertension Qualifiers: Hypertension type: essential hypertension Qualified Code(s): I10 - Essential (primary) hypertension Is this a current diagnosis for this admission?: Yes - Notes Notes: Thank you very much for this consultation. We will follow the patient. - Time Time Spent: 50 to 70 Minutes
[2018-03-26 05:20] LABS: ANION GAP 7 (5-19); BLOOD UREA NITROGEN 12 mg/dL (7-20); CALCIUM 8.6 mg/dL (8.4-10.2); CARBON DIOXIDE 28 mmol/L (22-30); CHLORIDE 97 mmol/L (98-107); GLUCOSE 86 mg/dL (75-110); POTASSIUM 3.6 mmol/L (3.6-5.0); SODIUM 131.8 mmol/L (137-145)
[2018-03-26] MEDS ORDERED: HYDRALAZINE HCL INJ/PF 20 MG/1 ML SDV IV PRN (07:27)
[2018-03-26] MEDS ORDERED: NORMAL SALINE 1000 ML 1,000 ML IV PRN ×2 (07:29→15:39)
[2018-03-26] MEDS: ENOXAPARIN SODIUM INJ 40 MG/0.4 ML DISP.SYRIN SUBCUT SCH (09:29)
[2018-03-26] MEDS: OXYBUTYNIN CHLORIDE 5 MG TABLET PO SCH ×2 (09:29→17:27)
[2018-03-26] MEDS: FAMOTIDINE 20 MG TABLET PO SCH (09:29)
[2018-03-26] MEDS ORDERED: AMLODIPINE BESYLATE 5 MG TABLET PO SCH (10:00)
[2018-03-26] MEDS ORDERED: POLYETHYLENE GLYCOL 3350 POWDER 17 GM/1 PACKET PO PRN (10:38)
--- NOTE | 2018-03-26 10:47 | PDOC PROGRESS REPORT ---
Subjective Progress Note for:: 03/26/18 Subjective:: doing well but states she really need something for her BM. states she's hasn't had a bm in 3 days- normally she goes daily- so she's very anxious about this now. Reason For Visit: SEVERE HYPONATREMIA Physical Exam Vital Signs: Temp Pulse Resp BP Pulse Ox 97.6 F 79 16 150/98 H 98 03/26/18 08:00 03/26/18 08:00 03/26/18 08:00 03/26/18 08:26 03/26/18 08:00 Intake & Output 03/25/18 03/26/18 03/27/18 06:59 06:59 06:59 Intake Total 2888 1221 Output Total 2250 2350 Balance 638 -1129 Weight 162 lb 7.691 oz 162 lb 7.691 oz General appearance: PRESENT: no acute distress Head exam: PRESENT: atraumatic, normocephalic Eye exam: PRESENT: EOMI, PERRLA. ABSENT: conjunctival injection, scleral icterus Ear exam: PRESENT: normal external ear exam Mouth exam: PRESENT: tongue midline Neck exam: ABSENT: tracheal deviation Respiratory exam: PRESENT: clear to auscultation eduard, symmetrical Cardiovascular exam: PRESENT: +S1, +S2 Pulses: PRESENT: +2 pedal pulses bilateral GI/Abdominal exam: PRESENT: normal bowel sounds, soft. ABSENT: tenderness Extremities exam: ABSENT: pedal edema Neurological exam: PRESENT: alert, awake, oriented to person, oriented to place, oriented to time, oriented to situation, CN II-XII grossly intact Skin exam: PRESENT: dry, warm Results Laboratory Results: 03/24/18 05:42 03/26/18 04:16 03/25/18 03/26/18 14:10 04:16 Sodium 131.0 L 131.8 L Potassium 4.0 3.6 Chloride 98 97 L Carbon Dioxide 24 28 Anion Gap 9 7 BUN 12 12 Creatinine 0.52 0.49 L Est GFR ( Amer) > 60 > 60 Est GFR (Non-Af Amer) > 60 > 60 Glucose 99 86 Calcium 8.6 8.6 03/23/18 03/23/18 03/23/18 15:05 15:05 20:55 Creatine Kinase 165 H Troponin I < 0.012 < 0.012 Impressions: Chest X-Ray 03/23/18 15:41 IMPRESSION: COPD. CHRONIC SCARRING. NO ACUTE RADIOGRAPHIC FINDING IN THE CHEST. Assessment & Plan - Diagnosis (1) Severe hyponatremia Is this a current diagnosis for this admission?: Yes (2) Generalized weakness Is this a current diagnosis for this admission?: Yes (3) Hyperlipidemia Qualifiers: Hyperlipidemia type: unspecified Qualified Code(s): E78.5 - Hyperlipidemia, unspecified Is this a current diagnosis for this admission?: Yes (4) Hypertension Qualifiers: Hypertension type: essential hypertension Qualified Code(s): I10 - Essenti al (primary) hypertension Is this a current diagnosis for this admission?: Yes (5) Constipation Is this a current diagnosis for this admission?: Yes - Plan Summary Plan Summary: Hyponatremia- Na 131 today- her Na was corrected too quickly 2 days ago prior to my assuming care- i had held IV fluids - i consulted [employer] for assistance- appreciate help- i have restarted her IV NS at 50cc/hr today- will continue to check BMP Q12 at this time- will add back salt tabs, home meds, once Na is >136. goal for correction is no more than 8-10meq in a 24 hours period. she's alert and oriented constipation- she's c/o it this morning- she's on colace but still no BM in 3 days- she wants suppository- will give dulcolax- added PRN miralax. HTN- restarted norvasc which was not started on admission. BP still high- hydralazine is being used as needed. may need to go up on Norvasc if BP is not well controlled by AM HLD- restarted statin OAB- restarted oxybutynin
[2018-03-26] MEDS ORDERED: BISACODYL 10 MG SUPP.RECT PR ONE ×2 (11:00→18:30)
[2018-03-26 15:29] LABS: ANION GAP 9 (5-19); BLOOD UREA NITROGEN 12 mg/dL (7-20); CALCIUM 9.1 mg/dL (8.4-10.2); CARBON DIOXIDE 27 mmol/L (22-30); CHLORIDE 94 mmol/L (98-107); GLUCOSE 139 mg/dL (75-110); POTASSIUM 3.1 mmol/L (3.6-5.0)
[2018-03-26 15:37] LABS: SODIUM 129.8 mmol/L (137-145)
[2018-03-26] MEDS ORDERED: POTASSIUM CHLORIDE 10 MEQ CAPSULE.ER PO ONE ×2 (18:41→23:00)
[2018-03-26] MEDS ORDERED: POTASSI CL 20 MEQ/NS 1L 1,000 ML IV PRN (18:42)
[2018-03-26 21:10] LABS: ANION GAP 8 (5-19); BLOOD UREA NITROGEN 12 mg/dL (7-20); CALCIUM 9.1 mg/dL (8.4-10.2); CARBON DIOXIDE 28 mmol/L (22-30); CHLORIDE 96 mmol/L (98-107); GLUCOSE 107 mg/dL (75-110); POTASSIUM 3.4 mmol/L (3.6-5.0); SODIUM 131.5 mmol/L (137-145)
[2018-03-27] MEDS: FAMOTIDINE 20 MG TABLET PO SCH ×3 (00:12→21:57)
[2018-03-27] MEDS: ATORVASTATIN CALCIUM 10 MG TABLET PO SCH ×2 (00:12→21:57)
[2018-03-27] MEDS ORDERED: BISACODYL 10 MG SUPP.RECT PR ONE (02:00)
[2018-03-27 09:02] LABS: ANION GAP 6 (5-19); BLOOD UREA NITROGEN 11 mg/dL (7-20); CALCIUM 9.2 mg/dL (8.4-10.2); CARBON DIOXIDE 26 mmol/L (22-30); CHLORIDE 98 mmol/L (98-107); GLUCOSE 103 mg/dL (75-110); POTASSIUM 4.1 mmol/L (3.6-5.0); SODIUM 130.2 mmol/L (137-145)
[2018-03-27] MEDS: OXYBUTYNIN CHLORIDE 5 MG TABLET PO SCH ×2 (09:45→17:23)
[2018-03-27] MEDS: ENOXAPARIN SODIUM INJ 40 MG/0.4 ML DISP.SYRIN SUBCUT SCH (09:45)
--- NOTE | 2018-03-27 09:47 | PDOC PROGRESS REPORT ---
Subjective Subjective:: states she feels much better today since she had a BM this morning- states it really made her feel good. otherwise she has no other complaints this morning- denies chest pain, SOB, abdominal pain, n/v or dizziness. Reason For Visit: SEVERE HYPONATREMIA Physical Exam Vital Signs: Temp Pulse Resp BP Pulse Ox 98.0 F 79 16 167/84 H 98 03/27/18 07:37 03/27/18 07:37 03/27/18 07:37 03/27/18 07:37 03/27/18 07:37 Intake & Output 03/26/18 03/27/18 03/28/18 06:59 06:59 06:59 Intake Total 1221 1900 Output Total 2350 1100 Balance -1129 800 Weight 162 lb 7.691 oz 161 lb 2.526 oz General appearance: PRESENT: no acute distress Head exam: PRESENT: atraumatic, normocephalic Eye exam: PRESENT: EOMI. ABSENT: conjunctival injection, scleral icterus Ear exam: PRESENT: normal external ear exam Mouth exam: PRESENT: tongue midline Neck exam: ABSENT: tracheal deviation Respiratory exam: PRESENT: clear to auscultation eduard, symmetrical Pulses: PRESENT: +2 pedal pulses bilateral GI/Abdominal exam: PRESENT: normal bowel sounds, soft. ABSENT: tenderness Extremities exam: ABSENT: pedal edema Neurological exam: PRESENT: alert, awake, oriented to person, oriented to place, oriented to time, oriented to situation, CN II-XII grossly intact Skin exam: PRESENT: dry, warm Results Laboratory Results: 03/24/18 05:42 03/27/18 08:23 03/26/18 03/26/18 03/27/18 15:05 20:45 08:23 Sodium 129.8 L 131.5 L 130.2 L Potassium 3.1 L 3.4 L 4.1 Chloride 94 L 96 L 98 Carbon Dioxide 27 28 26 Anion Gap 9 8 6 BUN 12 12 11 Creatinine 0.57 0.56 0.52 Est GFR ( Amer) > 60 > 60 > 60 Est GFR (Non-Af Amer) > 60 > 60 > 60 Glucose 139 H 107 103 Calcium 9.1 9.1 9.2 03/23/18 23:02 Catheterized Urine Urine Culture - Final NO GROWTH 2 DAYS 03/23/18 03/23/18 03/23/18 15:05 15:05 20:55 Creatine Kinase 165 H Troponin I < 0.012 < 0.012 Impressions: Chest X-Ray 03/23/18 15:41 IMPRESSION: COPD. CHRONIC SCARRING. NO ACUTE RADIOGRAPHIC FINDING IN THE CHEST. Assessment & Plan - Diagnosis (1) Severe hyponatremia Is this a current diagnosis for this admission?: Yes (2) Generalized weakness Is this a current diagnosis for this admission?: Yes (3) Hyperlipidemia Qualifiers: Hyperlipidemia type: unspecified Qualified Code(s): E78.5 - Hyperlipidemia, unspecified Is this a current diagnosis for this admission?: Yes (4) Hypertension Qualifiers: Hypertension type: essential hypertension Qualified Code(s): I10 - Essential (primary) hypertension Is this a current diagnosis for this admission?: Yes (5) Constipation Is this a current diagnosis for this admission?: Yes - Plan Summary Plan Summary: Hyponatremia- Na 130 today- i went back and reviewed her previous sodium and it seems that her sodium has been in the low 130s since 2013- not sure why. i have ordered serum and urine sodium. ?SIADH vs medication induced. she doesn't look volume overloaded. nephro is consulted and appreciate the assistance. i will stop her IV fluids for now and see how does in the morning. constipation- resolved- had BM- added PRN miralax. HTN- restarted norvasc which was not started on admission. BP still high- i have increaesd norvasc to 10mg this morning- hydralazine is being used as needed. HLD- restarted statin OAB- restarted oxybutynin
[2018-03-27] MEDS: AMLODIPINE BESYLATE 10 MG TABLET PO SCH (09:50)
[2018-03-27] MEDS ORDERED: AMLODIPINE BESYLATE 5 MG TABLET PO SCH (10:00)
[2018-03-27] MEDS: ACETAMINOPHEN 325 MG TABLET PO PRN (21:57)
[2018-03-28 05:14] LABS: ABSOLUTE EOSINOPHILS # (AUTO) 0.2 10^3/uL (0.0-0.6); ABSOLUTE LYMPHOCYTES (AUTO) 1.5 10^3/uL (0.5-4.7); ABSOLUTE MONOCYTES (AUTO) 0.5 10^3/uL (0.1-1.4); ABSOLUTE NEUT (AUTO) 2.4 10^3/uL (1.7-8.2); BASOPHILS % (AUTO) 0.9 % (0-2); HEMATOCRIT 31.9 % (36.0-47.0); LYMPHOCYTES % (AUTO) 32.7 % (13-45); MEAN CORPUSCULAR HEMOGLOBIN 32.2 pg (27.0-33.4); MEAN CORPUSCULAR HGB CONC 34.3 g/dL (32.0-36.0); MEAN CORPUSCULAR VOLUME 94 fl (80-97); MONOCYTES % (AUTO) 9.7 % (3-13); PLATELET COUNT 188 10^3/uL (150-450); RED CELL DISTRIBUTION WIDTH 12.5 % (11.5-14.0); SEGMENTED NEUTROPHILS % (AUTO) 51.7 % (42-78); TOTAL CELLS COUNTED % (AUTO) 100 %; WHITE BLOOD COUNT 4.7 10^3/uL (4.0-10.5)
[2018-03-28 05:39] LABS: ALANINE AMINOTRANSFERASE 26 U/L (9-52); ALBUMIN 3.5 g/dL (3.5-5.0); ALKALINE PHOSPHATASE 59 U/L (38-126); ANION GAP 8 (5-19); ASPARTATE AMINO TRANSFERASE 21 U/L (14-36); BILIRUBIN,TOTAL 0.3 mg/dL (0.2-1.3); BLOOD UREA NITROGEN 12 mg/dL (7-20); CARBON DIOXIDE 26 mmol/L (22-30); CHLORIDE 98 mmol/L (98-107); GLUCOSE 88 mg/dL (75-110); SODIUM 131.9 mmol/L (137-145); TOTAL PROTEIN 5.8 g/dL (6.3-8.2)
--- NOTE | 2018-03-28 08:54 | PDOC PROGRESS REPORT ---
Subjective Progress Note for:: 03/28/18 Subjective:: saw her at bedside. she has no complaints at this time. denies chest pain, SOB, abdominal pain, n/v or diarrhea. admits to dizziness if she stands to fast. admits to SOB if she exerts herself too much at home. but no SOB at rest Reason For Visit: SEVERE HYPONATREMIA Physical Exam Vital Signs: Temp Pulse Resp BP Pulse Ox 97.7 F 88 16 167/88 H 97 03/28/18 07:43 03/28/18 07:43 03/28/18 07:43 03/28/18 07:43 03/28/18 07:43 Intake & Output 03/27/18 03/28/18 03/29/18 06:59 06:59 06:59 Intake Total 1900 1000 Output Total 1100 Balance 800 1000 Weight 161 lb 2.526 oz 160 lb 11.472 oz General appearance: PRESENT: no acute distress Head exam: PRESENT: atraumatic, normocephalic Eye exam: PRESENT: EOMI. ABSENT: conjunctival injection, scleral icterus Ear exam: PRESENT: normal external ear exam Mouth exam: PRESENT: moist Neck exam: ABSENT: tracheal deviation Respiratory exam: PRESENT: clear to auscultation eduard, symmetrical Pulses: PRESENT: +2 pedal pulses bilateral GI/Abdominal exam: PRESENT: normal bowel sounds, soft. ABSENT: tenderness Extremities exam: ABSENT: pedal edema Neurological exam: PRESENT: alert, awake, oriented to person, oriented to place, oriented to time, oriented to situation, CN II-XII grossly intact Skin exam: PRESENT: dry, warm Results Laboratory Results: 03/28/18 04:16 03/28/18 04:16 03/27/18 03/28/18 03/28/18 08:23 04:16 04:16 WBC 4.7 RBC 3.40 L Hgb 11.0 L Hct 31.9 L MCV 94 MCH 32.2 MCHC 34.3 RDW 12.5 Plt Count 188 Seg Neutrophils % 51.7 Lymphocytes % 32.7 Monocytes % 9.7 Eosinophils % 5.0 Basophils % 0.9 Absolute Neutrophils 2.4 Absolute Lymphocytes 1.5 Absolute Monocytes 0.5 Absolute Eosinophils 0.2 Absolute Basophils 0.0 Sodium 130.2 L 131.9 L Potassium 4.1 4.0 Chloride 98 98 Carbon Dioxide 26 26 Anion Gap 6 8 BUN 11 12 Creatinine 0.52 0.50 L Est GFR ( Amer) > 60 > 60 Est GFR (Non-Af Amer) > 60 > 60 Glucose 103 88 Calcium 9.2 9.0 Magnesium 1.5 L Total Bilirubin 0.3 AST 21 ALT 26 Alkaline Phosphatase 59 Total Protein 5.8 L Albumin 3.5 03/23/18 03/23/18 03/23/18 15:05 15:05 20:55 Creatine Kinase 165 H Troponin I < 0.012 < 0.012 Impressions: Chest X-Ray 03/23/18 15:41 IMPRESSION: COPD. CHRONIC SCARRING. NO ACUTE RADIOGRAPHIC FINDING IN THE CHEST. Assessment & Plan - Diagnosis (1) Severe hyponatremia Is this a current diagnosis for this admission?: Yes (2) Generalized weakness Is this a current diagnosis for this admission?: Yes (3) Hyperlipidemia Qualifiers: Hyperlipidemia type: unspecified Qualified Code(s): E78.5 - Hyperlipidemia, unspecified Is this a current diagnosis for this admission?: Yes (4) Hypertension Qualifiers: Hypertension type: essential hypertension Qualified Code(s): I10 - Essential (primary) hypertension Is this a current diagnosis for this admission?: Yes (5) Constipation Is this a current diagnosis for this admission?: Yes - Plan Summary Plan Summary: Hyponatremia- still in the low 130s-her urine sodium is low. i have ordered urine/serum Osm today. i have fluid restricted her. i went back and reviewed her previous sodium and it seems that her sodium has been in the low 130s since 2013. she doesn't look volume overloaded. nephro is consulted and appreciate the assistance- i awaiting recommendations today. her IV fluids have been stopped. i would like to send her in 1-2 days if possible. constipation- resolved- had BM- added PRN miralax. HTN- SBP still slightly higher than 150- i have increaesd norvasc to 10mg.- hydralazine is being used as needed. I will add lisinopril 5mg today and see how she does. HLD- restarted statin OAB- restarted oxybutynin
[2018-03-28] MEDS: OXYBUTYNIN CHLORIDE 5 MG TABLET PO SCH ×2 (09:55→17:54)
[2018-03-28] MEDS: LISINOPRIL 5 MG TABLET PO SCH (09:55)
[2018-03-28] MEDS: FAMOTIDINE 20 MG TABLET PO SCH ×2 (09:55→21:16)
[2018-03-28] MEDS: AMLODIPINE BESYLATE 10 MG TABLET PO SCH (09:56)
[2018-03-28] MEDS: ENOXAPARIN SODIUM INJ 40 MG/0.4 ML DISP.SYRIN SUBCUT SCH (09:57)
--- NOTE | 2018-03-28 15:11 | PDOC PROGRESS REPORT ---
Subjective Progress Note for:: 03/28/18 Reason For Visit: Patient was admitted for symptomatic hyponatremia. She has a long-standing history of drinking around 3-4 L of fluid on a daily basis for quite some time along with saline tablets. She is currently doing well with a sodium at 131 which is back to her baseline. She is obviously been put on fluid restrictions in the hospital. She denies any history of headaches or seizures. No history of any chest pain shortness of breath unless she exerts a lot. No Nausea or abdominal pains. She admits to a family history of malignancy . Labs and medications were reviewed. Plans were discussed with Dr. Diaz who is the hospitalist covering. Physical Exam Vital Signs: Temp Pulse Resp BP Pulse Ox 97.7 F 103 H 16 167/88 H 97 03/28/18 07:43 03/28/18 14:00 03/28/18 07:43 03/28/18 07:43 03/28/18 07:43 Intake & Output 03/27/18 03/28/18 03/29/18 06:59 06:59 06:59 Intake Total 1900 1000 Output Total 1100 Balance 800 1000 Weight 73.1 kg 72.9 kg General appearance: PRESENT: no acute distress Respiratory exam: PRESENT: clear to auscultation eduard. ABSENT: crackles Cardiovascular exam: PRESENT: +S1, +S2 GI/Abdominal exam: PRESENT: normal bowel sounds, soft. ABSENT: organomegaly, tenderness Extremities exam: ABSENT: pedal edema Neurological exam: PRESENT: alert, awake, oriented to person, oriented to place Results Laboratory Results: 03/28/18 04:16 03/28/18 04:16 03/28/18 03/28/18 03/28/18 04:15 04:16 04:16 WBC 4.7 RBC 3.40 L Hgb 11.0 L Hct 31.9 L MCV 94 MCH 32.2 MCHC 34.3 RDW 12.5 Plt Count 188 Seg Neutrophils % 51.7 Lymphocytes % 32.7 Monocytes % 9.7 Eosinophils % 5.0 Basophils % 0.9 Absolute Neutrophils 2.4 Absolute Lymphocytes 1.5 Absolute Monocytes 0.5 Absolute Eosinophils 0.2 Absolute Basophils 0.0 Sodium 131.9 L Potassium 4.0 Chloride 98 Carbon Dioxide 26 Anion Gap 8 BUN 12 Creatinine 0.50 L Est GFR ( Amer) > 60 Est GFR (Non-Af Amer) > 60 Glucose 88 Serum Osmolality Calcium 9.0 Magnesium 1.5 L Total Bilirubin 0.3 AST 21 ALT 26 Alkaline Phosphatase 59 Total Protein 5.8 L Albumin 3.5 Urine Osmolality 363 03/28/18 04:16 WBC RBC Hgb Hct MCV MCH MCHC RDW Plt Count Seg Neutrophils % Lymphocytes % Monocytes % Eosinophils % Basophils % Absolute Neutrophils Absolute Lymphocytes Absolute Monocytes Absolute Eosinophils Absolute Basophils Sodium Potassium Chloride Carbon Dioxide Anion Gap BUN Creatinine Est GFR ( Amer) Est GFR (Non-Af Amer) Glucose Serum Osmolality 275 Calcium Magnesium Total Bilirubin AST ALT Alkaline Phosphatase Total Protein Albumin Urine Osmolality 03/23/18 03/23/18 03/23/18 15:05 15:05 20:55 Creatine Kinase 165 H Troponin I < 0.012 < 0.012 Impressions: Chest X-Ray 03/23/18 15:41 IMPRESSION: COPD. CHRONIC SCARRING. NO ACUTE RADIOGRAPHIC FINDING IN THE CHEST. Assessment & Plan - Diagnosis (1) Severe hyponatremia Is this a current diagnosis for this admission?: Yes Plan: She came in with an acute on chronic hyponatremia. Labs indicative of SIADH. Discussed with the patient about not having to drink so much of fluids. I am going to restrict her fluid intake to around 40-50 ounces in the winter. Discussed the reasoning behind it and she understands. She has an appointment to see me in the beginning of April and labs to be done before that. My opinion she is ready to be discharged home as long as she is able to restrict her fluids. (2) Generalized weakness Is this a current diagnosis for this admission?: Yes Plan: She had symptoms suggestive of symptomatic hyponatremia which has since resolved. (3) Hypertension Qualifiers: Hypertension type: essential hypertension Qualified Code(s): I10 - Essential (primary) hypertension Is this a current diagnosis for this admission?: Yes Plan: Lately controlled. Needs titration of her medications.
[2018-03-28] MEDS: ATORVASTATIN CALCIUM 10 MG TABLET PO SCH (21:15)
[2018-03-28] MEDS: ACETAMINOPHEN 325 MG TABLET PO PRN (21:16)
[2018-03-29] MEDS: MAGNESIUM SULFATE/D5W 1 GM/100 ML RTUPB IV SCH ×2 (08:44→10:01)
--- NOTE | 2018-03-29 09:04 | PDOC DISCHARGE SUMMARY ---
General - Admit/Disc Date/PCP Admission Date/Primary Care Provider: 03/23/18 18:08 ELLIE WOLF PA-C Discharge Date: 03/29/18 - Discharge Diagnosis (1) Severe hyponatremia Is this a current diagnosis for this admission?: Yes (2) Generalized weakness Is this a current diagnosis for this admission?: Yes (3) Hyperlipidemia Is this a current diagnosis for this admission?: Yes (4) Hypertension Is this a current diagnosis for this admission?: Yes (5) Constipation Is this a current diagnosis for this admission?: Yes - Additional Information Resuscitation Status: Full Code Discharge Diet: Cardiac Discharge Activity: Activity As Tolerated, Balance Activity w/Rest Home Medications: Albuterol Sulfate [Ventolin 0.083% Neb 2.5 mg/3 mL Ampul] 3 ml NEB Q8 03/23/18 Amitriptyline HCl [Elavil 50 mg Tablet] 50 mg PO QHS 03/23/18 Amlodipine Besylate [Norvasc 5 mg Tablet] 5 mg PO DAILY 03/23/18 Benazepril HCl [Lotensin] 40 mg PO DAILY 03/23/18 Fluticasone Propionate [Flovent Hfa 110 Mcg Inhalation Aerosol 12 gm] 1 puff IH Q12 03/23/18 Gabapentin [Neurontin 100 mg Capsule] 100 mg PO Q8 03/23/18 Oxybutynin Chloride [Ditropan 5 mg Tablet] 5 mg PO BID 03/23/18 Pravastatin Sodium [Pravachol] 20 mg PO DAILY 03/23/18 History of Present Illness History of Present Illness: ELI MEJIA is a 82 year old female admitted for hyponatremia. please see original H&P in chart Hospital Course Hospital Course: she received IV fluids initially and her electrolytes were repleted as needed. nephrology was consulted. her Na has been in the low 130s for many years- likely chronic. nephrology cleared patient for discharge. she was fluid restr icted to 40-50 ounces daily. she will following up with nephrology outpatient with Dr Li. Physical Exam Vital Signs: Temp Pulse Resp BP Pulse Ox 97.9 F 80 15 144/76 H 97 03/29/18 07:45 03/29/18 07:45 03/29/18 07:45 03/29/18 07:45 03/29/18 07:45 Intake & Output 03/28/18 03/29/18 03/30/18 06:59 06:59 06:59 Intake Total 1000 Output Total 225 Balance 1000 -225 Weight 160 lb 11.472 oz 160 lb 0.889 oz General appearance: PRESENT: no acute distress Head exam: PRESENT: atraumatic, normocephalic Eye exam: PRESENT: EOMI. ABSENT: conjunctival injection, scleral icterus Ear exam: PRESENT: normal external ear exam Mouth exam: PRESENT: tongue midline Neck exam: ABSENT: tracheal deviation Respiratory exam: PRESENT: clear to auscultation eudard, symmetrical Cardiovascular exam: PRESENT: +S1, +S2 GI/Abdominal exam: PRESENT: normal bowel sounds, soft. ABSENT: tenderness Extremities exam: ABSENT: pedal edema Neurological exam: PRESENT: alert, awake, oriented to person, oriented to place, oriented to time, oriented to situation, CN II-XII grossly intact Skin exam: PRESENT: dry, warm Results Laboratory Results: 03/28/18 04:16 03/28/18 04:16 03/28/18 03/28/18 04:15 04:16 Serum Osmolality 275 Urine Osmolality 363 03/23/18 03/23/18 03/23/18 15:05 15:05 20:55 Creatine Kinase 165 H Troponin I < 0.012 < 0.012 Impressions: Chest X-Ray 03/23/18 15:41 IMPRESSION: COPD. CHRONIC SCARRING. NO ACUTE RADIOGRAPHIC FINDING IN THE CHEST. Qualifiers - * PATIENT BEING DISCHARGED WITH ANY OF THE FOLLOWING DIAGNOSIS: No Plan Time Spent: Less than 30 Minutes
[2018-03-29] MEDS: FAMOTIDINE 20 MG TABLET PO SCH (09:20)
[2018-03-29] MEDS: AMLODIPINE BESYLATE 10 MG TABLET PO SCH (09:20)
[2018-03-29] MEDS: OXYBUTYNIN CHLORIDE 5 MG TABLET PO SCH (09:20)
[2018-03-29] MEDS: LISINOPRIL 5 MG TABLET PO SCH (09:20)
[2018-03-29] MEDS: ENOXAPARIN SODIUM INJ 40 MG/0.4 ML DISP.SYRIN SUBCUT SCH (09:21)
[2018-03-29 11:43] VITALS: BP 150/98
== END 2018-03-29 12:24 | disposition home or self-care (01) | DRG 641 ==
LOC: ER 14:44 → EH 18:08 → 3N 21:40
PROVIDERS: ADMIT Internal Medicine; ATTEND Internal Medicine
DX: E87.1 Hypo-osmolality and hyponatremia (principal); E03.9 Hypothyroidism, unspecified; I10 Essential (primary) hypertension; E78.5 Hyperlipidemia, unspecified; J44.9 Chronic obstructive pulmonary disease, unspecified; K59.00 Constipation, unspecified; Z90.710 Acquired absence of both cervix and uterus; Z79.82 Long term (current) use of aspirin; Z79.899 Other long term (current) drug therapy; Z88.6 Allergy status to analgesic agent; Z88.8 Allergy status to other drugs, medicaments and biological substances; Z79.890 Hormone replacement therapy
CPT/HCPCS: 36415; 71045; 80048; 80053; 81001; 82550; 83735; 83930; 83935; 84300; 84443; 84484; 85025; 85027; 87086; 93005; 93010; 99291; J0360; J1650; J2405; J3475; J3480; J3490; J7030

== ENCOUNTER 2018-09-25 00:09 | Emergency (ER) | payer MEDICARE, OTHER ==
[2018-09-25] MEDS ORDERED: DIAZEPAM INJ 10 MG/2 ML DISP.SYRIN IV ONE (00:21)
[2018-09-25] MEDS ORDERED: DIAZEPAM INJ 10 MG/2 ML DISP.SYRIN ONE (00:22)
[2018-09-25] MEDS ORDERED: NORMAL SALINE 500 ML IV ONE (00:22)
--- NOTE | 2018-09-25 00:25 | ER Document Report ---
ED General - General Stated Complaint: NAUSEA AND DIZZINESS Time Seen by Provider: 09/25/18 00:17 Primary Care Provider: ELLIE WOLF PA-C [Primary Care Provider] - Follow up as needed Notes: Patient is a pleasant 82-year-old female presents with complaint of severe vertigo. She says she has had vertigo for a long time. Says it comes and goes. They came on again tonight and she took her meclizine but it did not help. She said the meclizine she has is old. No fevers. No recent headaches. No recent head injuries. No focal weakness or numbness into her extremities. She says she feels like the room is moving when she opens her eyes. She says she still feels some spinning when she closes her eyes but is not as bad. She has been vomiting because of this. She is been unable to hold anything down tonight because of the vomiting from the vertigo. No associate abdominal pain. No chest pain. Paramedics did give her Zofran in the ambulance. TRAVEL OUTSIDE OF THE [place] IN LAST 30 DAYS: No - Related Data Allergies/Adverse Reactions: prednisone [Prednisone] Allergy (Mild, Verified 09/25/18 00:53) rash hydromorphone HCl [From Dilaudid] Adverse Reaction (Severe, Verified 09/25/18 00:53) "crazy" codeine [Codeine] Adverse Reaction (Intermediate, Verified 09/25/18 00:53) nausea vomit oxcarbazepine [From Trileptal] Adverse Reaction (Mild, Verified 09/25/18 00:53) HypoNa+ Past Medical History - Social History Smoking Status: Never Smoker Frequency of alcohol use: None Drug Abuse: None Family History: Reviewed & Not Pertinent - Past Medical History Cardiac Medical History: Reports: Hx Hypercholesterolemia, Hx Hypertension Pulmonary Medical History: Denies: Hx Tuberculosis Endocrine Medical History: Reports: Hx Hypothyroidism. Denies: Hx Diabetes Mellitus Type 1, Hx Diabetes Mellitus Type 2 Renal/ Medical History: Denies: Hx Peritoneal Dialysis GI Medical History: Reports: Hx Diverticulitis Psychiatric Medical History: Denies: Hx Depression Past Surgical History: Reports: Hx Breast Surgery - left breast biopsy, Hx Hysterectomy, Hx Orthopedic Surgery - back surgery, Other - Left breast biopsy which was benign - Immunizations Hx Diphtheria, Pertussis, Tetanus Vaccination: No Hx Pneumococcal Vaccination: 12/11/12 Review of Systems - Review of Systems Notes: My Normal Review Basic REVIEW OF SYSTEMS: CONSTITUTIONAL : Denies fever, chills, or sweats. Denies recent illness. EENT: Denies eye, ear, throat, or mouth pain or symptoms. Denies nasal or sinus congestion. CARDIOVASCULAR: Denies chest pain. RESPIRATORY: Denies cough, cold, or chest congestion. Denies shortness of breath, difficulty breathing, or wheezing. GASTROINTESTINAL: Denies abdominal pain. Recurrent vomiting. MUSCULOSKELETAL: Denies neck or back pain or joint pain or swelling. SKIN: Denies rash or skin lesions. NEUROLOGICAL: Denies altered mental status or loss of consciousness. Denies headache. Denies weakness or paralysis or loss of use of either side. Denies sensory or motor loss. Vertigo. ALL OTHER SYSTEMS REVIEWED AND NEGATIVE. Physical Exam - Vital signs Vitals: Resp BP Pulse Ox 15 162/87 H 98 09/25/18 00:30 09/25/18 00:30 09/25/18 00:30 - Notes Notes: General Appearance: Well nourished, alert, cooperative, no acute distress, no obvious discomfort. Vitals: reviewed, See vital signs table. Head: no swelling or tenderness to the head Eyes: PERRL, EOMI, Conjuctiva clear Mouth: No decreasd moisture Throat: No tonsillar inflammation, No airway obstruction, No lymphadenopathy Neck: Supple, no neck tenderness, No thyromegaly Lungs: No wheezing, No rales, No rhonci, No accessory muscle use, good air exchange bilaterally. Heart: Normal rate, Regular rythm, No murmur, no rub Extremities: strength 5/5 in all extremities, good pulses in all extremities, no swelling or tenderness in the extremities, no edema. Skin: warm, dry, appropriate color, no rash Neuro: speech clear, oriented x 3, normal affect, responds appropriately to questions. Cranial nerves II through XII are intact. Distal sensation intact. Patient moves all extremities without difficulty. Mild horizontal nystagmus with lateral gaze. Course - Re-evaluation Re-evalutation: 09/25/18 01:31 On reevaluation patient is improved appearing. Patient is her vertigo is much improved with the Valium. Awaiting labs to return. 09/25/18 02:14 His vertigo continues to be resolved. She looks well. She did request to go home. I did check a chemistry panel make sure her sodium was not low as she has a history of hyponatremia in the past. She has just mild hyponatremia but nothing that would be considered concerning. We will discharge her home. I encourage her to take meclizine first for dizziness. Meclizine is not working and she could take the Valium. I encouraged her to follow-up closely with her doctor this coming week. I encouraged her return to ER if she has recurrent vertigo not responding to home medications or she feels unwell. Patient agrees with plan. Dictation of this chart was performed using voice recognition software; therefore, there may be some unintended grammatical errors. - Vital Signs Vital signs: Temp Pulse Resp BP Pulse Ox 21 H 158/80 H 100 09/25/18 02:00 09/25/18 02:00 09/25/18 02:00 - Laboratory Result Diagrams: 09/25/18 00:31 09/25/18 01:08 Laboratory results interpreted by me: 09/25/18 09/25/18 00:31 01:08 RBC 3.70 L Hgb 11.4 L Hct 33.9 L Sodium 134.7 L BUN 28 H Est GFR ( Amer) 56 L Est GFR (Non-Af Amer) 47 L Glucose 117 H Calcium 8.3 L Total Protein 5.6 L Albumin 3.2 L - EKG Interpretation by Me Additional EKG results interpreted by me: 09/25/18 01:02 EKG is reviewed and interpreted by me. EKG shows sinus rhythm with rate of [address] segment elevation or depression. No ischemic T wave inversions. LA interval, QRS duration, QT intervals are within normal range. Old EKG for comparison is from March 23, 2018. Discharge - Discharge Clinical Impression: Vertigo Condition: Good Disposition: HOME, SELF-CARE Additional Instructions: You vertigo did respond to a medication called Valium. I have written a prescription for both meclizine and Valium. If you develop vertigo again you should initially take the meclizine. If 30 minutes to an hour after taking meclizine you are still feeling dizzy, you can then take the Valium. Please be aware that Valium may make you little bit sleepy and positive make you a bit unsteady on your feet so therefore be careful when getting up and walking after taking the Valium. Please return to ER immediately if you have intractable dizziness and vertigo despite the medications, recurrent vomiting, fevers, or if you feel unwell. Prescriptions: Diazepam [Valium 2 mg Tablet] 2 mg PO Q6HP PRN #15 tablet PRN Reason: vertigo, dizziness Meclizine HCl [Antivert 25 mg Tablet] 25 mg PO TID PRN #21 tablet PRN Reason: Referrals: ELLIE WOLF PA-C [Primary Care Provider] - Follow up in 3-5 days
[2018-09-25 00:40] LABS: ABSOLUTE EOSINOPHILS # (AUTO) 0.1 10^3/uL (0.0-0.6); ABSOLUTE MONOCYTES (AUTO) 0.4 10^3/uL (0.1-1.4); ABSOLUTE NEUT (AUTO) 3.8 10^3/uL (1.7-8.2); BASOPHILS % (AUTO) 0.7 % (0-2); EOSINOPHILS % (AUTO) 1.9 % (0-6); HEMATOCRIT 33.9 % (36.0-47.0); HEMOGLOBIN 11.4 g/dL (12.0-15.5); LYMPHOCYTES % (AUTO) 18.5 % (13-45); MEAN CORPUSCULAR HEMOGLOBIN 30.9 pg (27.0-33.4); MEAN CORPUSCULAR HGB CONC 33.7 g/dL (32.0-36.0); MEAN CORPUSCULAR VOLUME 92 fl (80-97); MONOCYTES % (AUTO) 7.3 % (3-13); PLATELET COUNT 183 10^3/uL (150-450); RED CELL DISTRIBUTION WIDTH 13.2 % (11.5-14.0); SEGMENTED NEUTROPHILS % (AUTO) 71.6 % (42-78); TOTAL CELLS COUNTED % (AUTO) 100 %; WHITE BLOOD COUNT 5.3 10^3/uL (4.0-10.5)
[2018-09-25 01:32] LABS: ALANINE AMINOTRANSFERASE 26 U/L (9-52); ALBUMIN 3.2 g/dL (3.5-5.0); ALKALINE PHOSPHATASE 57 U/L (38-126); ANION GAP 7 (5-19); ASPARTATE AMINO TRANSFERASE 18 U/L (14-36); BILIRUBIN,DIRECT 0.2 mg/dL (0.0-0.4); BILIRUBIN,TOTAL 0.2 mg/dL (0.2-1.3); BLOOD UREA NITROGEN 28 mg/dL (7-20); CALCIUM 8.3 mg/dL (8.4-10.2); CARBON DIOXIDE 23 mmol/L (22-30); CHLORIDE 105 mmol/L (98-107); GLUCOSE 117 mg/dL (75-110); POTASSIUM 3.7 mmol/L (3.6-5.0); SODIUM 134.7 mmol/L (137-145); TOTAL PROTEIN 5.6 g/dL (6.3-8.2)
[2018-09-25 03:09] VITALS: BP 156/75
--- NOTE | 2018-09-25 09:21 | EKG REPORT ---
SEVERITY:- NORMAL ECG - SINUS RHYTHM : Confirmed by: Checo Mercado MD 25-Sep-2018 09:21:01
== END 2018-09-25 03:10 | disposition home or self-care (01) ==
LOC: ER 00:09
DX: R42 Dizziness and giddiness (principal); H55.00 Unspecified nystagmus; R11.2 Nausea with vomiting, unspecified; E87.1 Hypo-osmolality and hyponatremia; I10 Essential (primary) hypertension; Z88.8 Allergy status to other drugs, medicaments and biological substances
CPT/HCPCS: 93005; 99283; 96361; 96374; 36415; 85025; 80053; 93010; J3360; J7040

== ENCOUNTER → 2018-10-05 | Outpatient (CLI) | payer MEDICARE, OTHER ==
--- NOTE | 2018-10-05 11:57 | RADIOLOGY REPORT (SQ) ---
EXAM DESCRIPTION: CT CHEST WITHOUT COMPLETED DATE/TIME: 10/05/2018 9:25 am REASON FOR STUDY: R06.09 OTHER FORMS OF DYSPNEA R06.09 OTHER FORMS OF DYSPNEA COMPARISON: Chest x-ray 03/23/2018 TECHNIQUE: CT scan performed of the chest without intravenous contrast. Images reviewed with lung, soft tissue and bone windows. Reconstructed coronal and sagittal MPR images reviewed. All images st ored on PACS. All CT scanners at this facility use dose modulation, iterative reconstruction, and/or weight based d osing when appropriate to reduce radiation dose to as low as reasonably achievable (ALARA). [facility]: Dose Right [facility]: CareDose [facility]: Dose Right [facility]: Teradose 4D [facility]: [employer] RADIATION DOSE: CT Rad equipment meets quality standard of care and radiation dose reduction techniq ues were employed. CTDIvol: 3.6 mGy. DLP: 133 mGy-cm. mGy. LIMITATIONS: No technical limitations. FINDINGS: LUNGS AND PLEURA: Hyperexpansion of the lungs. Mild peripheral pulmonary fibrosis more pr ominent in the lower lobes, generally UIP pattern. No acute pulmonary infiltrate. No mass. HILAR AND MEDIASTINAL STRUCTURES: No identified masses or abnormal nodes. No obvious aneurysm. HEART AND VASCULAR STRUCTURES: No aneurysm. No pericardial effusion. UPPER ABDOMEN: No significant findings. Limited exam. THYROID AND OTHER SOFT TISSUES: No masses. No adenopathy. BONES: No significant finding. HARDWARE: None in the chest. OTHER: No other significant findings. 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 No acute finding in the thorax. TECHNICAL DOCUMENTATION: JOB ID: [id number] Quality ID # [id number]: Final reports with documentation of one or more dose reduction techniques (e.g., Au tomated exposure control, adjustment of the mA and/or kV according to patient size, use of iterative reconstruction technique) 2010 [employer]- All Rights Reserved Reading location - IP/workstation name: [email or web address]
== END ==
LOC: RAD 09:13
PROVIDERS: ATTEND Internal Medicine Critical Care Medicine
DX: J84.10 Pulmonary fibrosis, unspecified (principal); R06.09 Other forms of dyspnea; R09.02 Hypoxemia
CPT/HCPCS: 71250

== ENCOUNTER → 2019-04-11 | Outpatient (CLI) | payer MEDICARE, OTHER ==
--- NOTE | 2019-04-11 14:08 | RADIOLOGY REPORT (SQ) ---
EXAM DESCRIPTION: CT CHEST WITHOUT COMPLETED DATE/TIME: 04/11/2019 10:16 am REASON FOR STUDY: R06.09 OTHER FORMS OF DYSPNEA R06.09 OTHER FORMS OF DYSPNEA COMPARISON: None. TECHNIQUE: CT scan performed of the chest without intravenous contrast. Images reviewed with lung, soft tissue and bone windows. Reconstructed coronal and sagittal MPR images reviewed. All images st ored on PACS. All CT scanners at this facility use dose modulation, iterative reconstruction, and/or weight based d osing when appropriate to reduce radiation dose to as low as reasonably achievable (ALARA). [facility]: Dose Right [facility]: CareDose [facility]: Dose Right [facility]: Teradose 4D [facility]: [employer] RADIATION DOSE: CT Rad equipment meets quality standard of care and radiation dose reduction techniq ues were employed. CTDIvol: 4.7 mGy. DLP: 179 mGy-cm. mGy. LIMITATIONS: No technical limitations. FINDINGS: LUNGS AND PLEURA: Diffuse subpleural fibrosis and bronchiectasis without progression. No ground-glass attenuation, consolidation or cyst formation. Patent central airways. HILAR AND MEDIASTINAL STRUCTURES: No identified masses or abnormal nodes. No obvious aneurysm. HEART AND VASCULAR STRUCTURES: No aneurysm. No pericardial effusion. UPPER ABDOMEN: No significant findings. Limited exam. THYROID AND OTHER SOFT TISSUES: No masses. No adenopathy. BONES: No significant finding. HARDWARE: None in the chest. OTHER: No other significant findings. IMPRESSION: UIP pattern. Mild fibrosis. No progression. TECHNICAL DOCUMENTATION: JOB ID: [id number] Quality ID # [id number]: Final reports with documentation of one or more dose reduction techniques (e.g., Au tomated exposure control, adjustment of the mA and/or kV according to patient size, use of iterative reconstruction technique) 2010 [employer]- All Rights Reserved Reading location - IP/workstation name: [email or web address]
== END ==
LOC: RAD 09:50
PROVIDERS: ATTEND Internal Medicine Critical Care Medicine
DX: J84.10 Pulmonary fibrosis, unspecified (principal); J47.9 Bronchiectasis, uncomplicated; R06.09 Other forms of dyspnea; R09.02 Hypoxemia
CPT/HCPCS: 71250

== ENCOUNTER → 2019-11-06 | Outpatient (CLI) | payer MEDICARE ==
--- NOTE | 2019-11-06 13:12 | RADIOLOGY REPORT (SQ) ---
EXAM DESCRIPTION: CHEST PA/LATERAL IMAGES COMPLETED DATE/TIME: 11/06/2019 11:58 am REASON FOR STUDY: COUGH COMPARISON: 03/23/2018 EXAM PARAMETERS: NUMBER OF VIEWS: two views TECHNIQUE: Digital Frontal and Lateral radiographic views of the chest acquired. RADIATION DOSE: NA LIMITATIONS: none FINDINGS: LUNGS AND PLEURA: There are mild chronic interstitial changes. No acute infiltrate, effus ion, or mass. MEDIASTINUM AND HILAR STRUCTURES: No masses or contour abnormalities. HEART AND VASCULAR STRUCTURES: Heart normal size. No evidence for failure. BONES: No acute findings. HARDWARE: None in the chest. OTHER: No other significant finding. IMPRESSION: Chronic lung changes with no acute cardiopulmonary findings. TECHNICAL DOCUMENTATION: JOB ID: [id number] 2010 [employer]- All Rights Reserved Reading location - IP/workstation name: [email or web address]
== END ==
LOC: OD 11:19
PROVIDERS: ATTEND Physician Assistant
DX: R05 Cough (principal)
CPT/HCPCS: 71046

== ENCOUNTER → 2019-11-06 | Outpatient (CLI) | payer MEDICARE ==
--- NOTE | 2019-11-06 12:12 | WOMENS IMAGING REPORT ---
EXAM DESCRIPTION: 3D SCREENING MAMMO BILAT IMAGES COMPLETED DATE/TIME: 11/06/2019 10:55 am REASON FOR STUDY: Z12.31 ENCNTR SCREEN MAMMOGRAM FOR MALIGNANT NEOPLASM OF BREAST Z12.31 ENCNTR SCR EEN MAMMOGRAM FOR MALIGNANT NEOPLASM OF GEOFF COMPARISON: 2017 and subsequent. EXAM PARAMETERS: Standard craniocaudal and mediolateral oblique views of each breast recorded using digital acquisition and breast tomosynthesis. Read with the assistance of CAD. .[facility] - [employer] Analyst Version 9.2 LIMITATIONS: None. FINDINGS: Findings present which are benign by mammographic criteria. No suspicious masses, calcific ations or architectural distortion. Pertinent benign findings: Scattered benign calcifications. Benign mammographic findings may include one or more of the following: Smooth masses, popcorn/rim/coa rse calcifications, asymmetries, post-procedure changes, and lesions with long-standing stability. IMPRESSION: BENIGN MAMMOGRAPHIC FINDINGS. BIRADS 2 BREAST DENSITY: b. There are scattered areas of fibroglandular density. BIRAD: ASSESSMENT: 2 BENIGN FINDING(S) RECOMMENDATION: ROUTINE SCREENING COMMENT: The patient has been notified of the results by letter per MQSA requirements. Additional no tification policies are in place for contacting patient with suspicious or incomplete findings. Quality ID #[id number]: The [employer] recommends an annual screening mammogram for women aged 40 years or over. This facility utilizes a reminder system to ensure that all patients receive reminder letters, and/or direct phone calls for appointments. This includes reminders for routine scr eening mammograms, diagnostic mammograms, or other Breast Imaging Interventions when appropriate. Th is patient will be placed in the appropriate reminder system. TECHNICAL DOCUMENTATION: FINDING NUMBER: (1) ASSESSMENT: (1) JOB ID: [id number] 2010 [employer]- All Rights Reserved Reading location - IP/workstation name: [email or web address]
== END ==
LOC: WI 10:30
PROVIDERS: ATTEND Physician Assistant
DX: Z12.31 Encounter for screening mammogram for malignant neoplasm of breast (principal)
CPT/HCPCS: 77063; 77067

== ENCOUNTER → 2019-11-27 | Outpatient (CLI) | payer MEDICARE ==
--- NOTE | 2019-11-27 16:37 | RADIOLOGY REPORT (SQ) ---
EXAM DESCRIPTION: FOOT RIGHT COMPLETE IMAGES COMPLETED DATE/TIME: 11/27/2019 3:39 pm REASON FOR STUDY: RT FOOT PAIN M79.671 PAIN IN RIGHT FOOT COMPARISON: None. NUMBER OF VIEWS: Three views. TECHNIQUE: AP, lateral and oblique without weight bearing radiographic images acquired of the right foot. LIMITATIONS: None. FINDINGS: MINERALIZATION: Normal. BONES: No acute fracture or dislocation. No worrisome bone lesions. No significant osteophytes. JOINTS: No erosions. No augustus-articular osteopenia. No chondrocalcinosis. SOFT TISSUES: No swelling. No calcifications. OTHER: No other significant finding. IMPRESSION: NEGATIVE STUDY OF THE RIGHT FOOT. NO EXPLANATION FOR PAIN. TECHNICAL DOCUMENTATION: JOB ID: [id number] 2010 [employer]- All Rights Reserved Reading location - IP/workstation name: [email or web address]
== END ==
LOC: OD 15:14
PROVIDERS: ATTEND Physician Assistant
DX: M79.671 Pain in right foot (principal)

== ENCOUNTER → 2020-02-14 | Outpatient (CLI) | payer MEDICARE ==
--- NOTE | 2020-02-14 12:32 | RADIOLOGY REPORT (SQ) ---
EXAM DESCRIPTION: CLAVICLE RIGHT IMAGES COMPLETED DATE/TIME: 02/14/2020 12:14 pm REASON FOR STUDY: (M89.8X1)OTHER SPECIFIED DISORDERS OF BONE, SHOULDER M89.8X1 OTHER SPECIFIED DISO RDERS OF BONE, SHOULDER COMPARISON: None. NUMBER OF VIEWS: Two views. TECHNIQUE: Frontal and angled images were acquired of the right clavicle. LIMITATIONS: None. FINDINGS: MINERALIZATION: Decreased. BONES: No acute fracture or dislocation. No worrisome bone lesions. SOFT TISSUES: No obvious swelling or foreign body. OTHER: No other significant finding. IMPRESSION: NEGATIVE STUDY OF THE RIGHT CLAVICLE. NO RADIOGRAPHIC EVIDENCE OF ACUTE INJURY. TECHNICAL DOCUMENTATION: JOB ID: [id number] 2010 [email or web address]- All Rights Reserved Reading location - IP/workstation name: [email or web address]
== END ==
LOC: RAD 11:54
PROVIDERS: ATTEND Physician Assistant
DX: M89.8X1 Other specified disorders of bone, shoulder (principal)